=== PATIENT | female | born 1940 | race Caucasian/White ===

== ENCOUNTER 2018-02-26 10:19 | Emergency (ER) | payer MEDICARE, SELFPAY ==
[2018-02-26] VITALS (7 sets, daily range): BP systolic 142–173; BP diastolic 75–95; PULSE 84–97; RESP 18–27; TEMP 36.8; O2SAT 95–98
--- NOTE | 2018-02-26 10:34 | DI.RAD.S_ITS ---
PROCEDURE: XR CHEST 1V INDICATIONS: chest pain and short of breath TECHNIQUE: One view of the chest was acquired. COMPARISON: [facility], , CHEST 2 VIEW, 01/18/2015, 6:39. FINDINGS: Surgical changes and devices: None. Lungs and pleura: Increased interstitial markings are identified within the bilateral lung bases (right and left), which are more prominent on the current study, compared to the previous study. No focal consolidation is evident. No pleural effusion or pneumothorax is appreciated. Mediastinum: Mediastinal contours appear normal. Heart size is normal. Bones and chest wall: No suspicious bony lesions. Overlying soft tissues appear unremarkable. IMPRESSION: Prominent bibasilar lung markings may be related to chronic interstitial changes. However, superimposed pulmonary edema is difficult to exclude. Dictated by: Victor Hugo Castillo M.D. on 02/26/2018 at 11:13 Approved by: Victor Hugo Castillo M.D. on 02/26/2018 at 11:16
--- NOTE | 2018-02-26 10:42 | ED.ARRPALP ---
HPI - Arrhythmia/Palpitations General Chief Complaint: Arrhythmia/Palpitations Stated Complaint: NEW ONSET AFIB Time Seen by Provider: 02/26/18 10:33 Source: patient and RN notes reviewed Mode of arrival: ambulatory Limitations: no limitations History of Present Illness HPI narrative: Patient is a 77-year-old female who presents from her primary care provider's office new onset AFib. Patient says she was there for her routine checkup and she was found to have free controlled atrial fibrillation. She sent to the ED for further evaluation due to shortness of breath. Patient says she has chronic ongoing shortness of breath she has had multiple pulmonary function testing on a inhalers bronchodilators to not work for her. She does not feel that her shortness of breath is any worse than normal. She denies any chest pain or heart palpitations. She completely asymptomatic. She does get shortness of breath with exertion. Related Data Home Medications Medication Instructions Recorded Confirmed calcium carbonate 500 mg calcium 500 mg PO DAILY tab 02/26/18 02/26/18 (1,250 mg) tablet hydrochlorothiazide 25 mg PO DAILY 02/26/18 02/26/18 Previous Rx's Medication Instructions Recorded ascorbic acid (vitamin C) 500 mg 500 mg PO DAILY #90 tab 02/26/18 tablet aspirin 81 mg tablet,delayed 81 mg PO DAILY #90 tab 02/26/18 release multivitamin tablet 1 tab PO DAILY #90 tab 02/26/18 omega-3 fatty acids 1,000 mg 1,000 mg PO DAILY #90 cap 02/26/18 capsule verapamil 80 mg tablet 80 mg PO BID #180 tab 02/26/18 vitamin B complex tablet 1 tab PO DAILY #90 tab 02/26/18 vitamin E 200 unit capsule 200 unit PO DAILY #90 cap 02/26/18 warfarin [Coumadin] 5 mg PO DAILY #30 tab 02/26/18 Allergies Allergy/AdvReac Type Severity Reaction Status Date / Time lanolin [LANOLIN] Allergy Intermediate RASH Verified 02/26/18 09:37 Sulfa (Sulfonamide AdvReac Mild N/V Verified 02/26/18 09:37 Antibiotics) [SULFA (SULFONAMIDE ANTIBIOTICS)] Review of Systems Review of Systems All systems reviewed & are unremarkable except as noted in HPI and below Constitutional Denies chills, Denies fever(s), Denies lethargy and Denies weakness Cardiovascular Denies chest pain, Denies irregular heart rhythm, Denies lightheadedness, Denies palpitations, Reports dyspnea on exertion and Denies orthopnea Respiratory Reports as per HPI and Reports dyspnea on exertion Gastrointestinal Gastrointestinal: Denies abdominal pain, Denies change in bowel habits, Denies diarrhea, Denies nausea and Denies vomiting Musculoskeletal Denies back pain, Denies muscle weakness, Denies numbness and Denies tingling Integumentary/Breasts Denies pruritus, Denies erythema, Denies rash and Denies wounds Neurologic Denies numbness, Denies tingling and Denies weakness Endocrine Denies palpitations PFSH Medical History Mild mitral regurgitation (Chronic) Sleep apnea (Chronic) 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 (Resolved) Social History Smoking Status: Never smoker Exam Initial Vital Signs Initial Vital Signs: Vital Signs Temperature 98.3 F 02/26/18 10:40 Pulse Rate 89 02/26/18 10:40 Respiratory Rate 20 02/26/18 10:40 Blood Pressure 151/77 H 02/26/18 10:40 Pulse Oximetry 97 02/26/18 10:40 Const General: cooperative and comfortable Nutritional Appearance: overweight Orientation: alert, awake and oriented x3 Neck Neck: full ROM, no meningeal signs and No JVD Chest Chest: normal inspection of the chest Resp Effort & Inspection: normal respiratory effort, not labored and no respiratory distress Auscultation: wheezes inspiratory wheezes and upper bilaterally Cardio Rate: regular rate Rhythm: abnormal rhythm irregularly irregular Heart Sounds: no click, no gallops, no murmurs and no rubs Pulses: normal peripheral pulses Skin General: no rashes or lesions noted, No jaundice and No petechiae Neuro General: alert, awake and oriented x3 Course Orders Ordered: ED Orders 02/26/18 10:30 B Type Natriuretic Peptide Stat Complete Blood Count AUTO DIFF Stat Comprehensive Metabolic Panel Stat Lipase Stat Partial Thromboplastin Time Stat Prothrombin Time INR Stat Troponin & CK Cardiac Panel Stat 02/26/18 10:34 XR chest 1V Stat 02/26/18 11:48 CT angio chest PE protocol Stat Discontinued Medications Aspirin (Aspirin Chew) 324 mg PO NOW ONE Stop: 02/26/18 10:34 Last Admin: 02/26/18 10:50 Dose: 324 mg Diltiazem HCl (Cardizem) 10 mg IV NOW ONE Stop: 02/26/18 10:43 Last Admin: 02/26/18 10:50 Dose: 10 mg Warfarin Sodium (Coumadin) 5 mg PO NOW ONE Stop: 02/26/18 13:26 Last Admin: 02/26/18 14:02 Dose: 5 mg Vital Signs - 8 hr 02/26/18 10:50 02/26/18 11:17 02/26/18 11:30 Pulse Rate 97 H 87 87 Respiratory Rate 19 23 Blood Pressure 151/77 H Blood Pressure [Left Wrist] 151/77 H 150/75 H Pulse Oximetry 95 97 02/26/18 12:02 02/26/18 12:57 02/26/18 14:44 Pulse Rate 89 84 93 H Respiratory Rate 20 27 H 18 Blood Pressure 142/78 H Blood Pressure [Left Wrist] 150/85 H 173/95 H Pulse Oximetry 98 97 97 MDM - Arrhythmia/Palpitations Lab Data Result diagrams: 02/26/18 10:30 02/26/18 10:30 Lab Results 02/26/18 02/26/18 02/26/18 Range/Units 10:30 10:30 10:30 WBC 10.5 (4.5-11.0) X10^3/uL RBC 5.29 H (4.0-5.2) X10^6/uL Hgb 15.6 (12.0-16.0) g/dL Hct 46.3 H (36-46) % MCV 87.6 (80-100) fL MCH 29.5 (26-34) PG MCHC 33.7 (30-36) % RDW 14.3 (11.6-14.8) % Plt Count 216 (150-400) X10^3/uL Neut % (Auto) 69.6 (50-75) % Lymph % (Auto) 18.9 L (25-40) % [place] % (Auto) 9.9 (3-14) % Eos % (Auto) 1.2 L (2-4) % Baso % (Auto) 0.4 (0-2) % Neut # (Auto) 7300 H (6682-0415) /uL PT (10.1-12.7) SECONDS INR (0.9-1.3) APTT (26.4-36.2) SECONDS Sodium 138 (137-145) mmol/L Potassium 4.1 (3.4-5.1) mmol/L Chloride 99 (98-107) mmol/L Carbon Dioxide 29 (22-32) mmol/L BUN 24 H (7-17) mg/dL Creatinine 0.90 (0.52-1.04) mg/dL Estimated GFR > 60.0 (>60) mL/min BUN/Creatinine Ratio 26.7 H (6-22) Glucose 100 (80-110) mg/dL Calcium 9.5 (8.4-10.2) mg/dL Total Bilirubin 1.0 (0.2-1.3) mg/dL AST 34 (14-36) IU/L ALT 36 (9-52) IU/L Alkaline Phosphatase 79 (38-126) U/L Total Creatine Kinase 37 (30-135) U/L Troponin I < 0.012 (0.01-0.034) ng/mL B-Natriuretic Peptide 130.0 H (<100) Total Protein 7.7 (6.3-8.2) g/dL Albumin 4.5 (3.5-5.0) g/dL Globulin 3.2 (1.7-4.1) g/dL Albumin/Globulin Ratio 1.4 (1.0-2.8) Lipase 185 (23-300) U/L //18 Range/Units 10:30 WBC (4.5-11.0) X10^3/uL RBC (4.0-5.2) X10^6/uL Hgb (12.0-16.0) g/dL Hct (36-46) % MCV (80-100) fL MCH (26-34) PG MCHC (30-36) % RDW (11.6-14.8) % Plt Count (150-400) X10^3/uL Neut % (Auto) (50-75) % Lymph % (Auto) (25-40) % [place] % (Auto) (3-14) % Eos % (Auto) (2-4) % Baso % (Auto) (0-2) % Neut # (Auto) (6518-6415) /uL PT 12.0 (10.1-12.7) SECONDS INR 1.1 (0.9-1.3) APTT 30 (26.4-36.2) SECONDS Sodium (137-145) mmol/L Potassium (3.4-5.1) mmol/L Chloride (98-107) mmol/L Carbon Dioxide (22-32) mmol/L BUN (7-17) mg/dL Creatinine (0.52-1.04) mg/dL Estimated GFR (>60) mL/min BUN/Creatinine Ratio (6-22) Glucose (80-110) mg/dL Calcium (8.4-10.2) mg/dL Total Bilirubin (0.2-1.3) mg/dL AST (14-36) IU/L ALT (9-52) IU/L Alkaline Phosphatase (38-126) U/L Total Creatine Kinase (30-135) U/L Troponin I (0.01-0.034) ng/mL B-Natriuretic Peptide (<100) Total Protein (6.3-8.2) g/dL Albumin (3.5-5.0) g/dL Globulin (1.7-4.1) g/dL Albumin/Globulin Ratio (1.0-2.8) Lipase (23-300) U/L Imaging Data Chest x-ray: Radiologist's impression: PROCEDURE: XR CHEST 1V INDICATIONS: chest pain and short of breath TECHNIQUE: One view of the chest was acquired. COMPARISON: [facility], CHEST 2 VIEW, 01/18/2015, 6:39. FINDINGS: Surgical changes and devices: None. Lungs and pleura: Increased interstitial markings are identified within the bilateral lung bases (right and left), which are more prominent on the current study, compared to the previous study. No focal consolidation is evident. No pleural effusion or pneumothorax is appreciated. Mediastinum: Mediastinal contours appear normal. Heart size is normal. Bones and chest wall: No suspicious bony lesions. Overlying soft tissues appear unremarkable. IMPRESSION: Prominent bibasilar lung markings may be related to chronic interstitial changes. However, superimposed pulmonary edema is difficult to exclude. Dictated by: Victor Hugo Castillo M.D. on 02/26/2018 at 11:13 CT scan - chest: Radiologist's impression: PROCEDURE: CT ANGIO CHEST PE PROTOCOL INDICATIONS: Short of breath TECHNIQUE: After the administration of intravenous contrast, 2 mm thick sections acquired from the pulmonary apices to the posterior costophrenic angles. 3-dimensional maximum intensity projection (MIP) coronal and sagittal reformats were then acquired through the thorax. For radiation dose reduction, the following was used: automated exposure control, adjustment of mA and/or kV according to patient size. COMPARISON: [facility], CT, THORAX WITHOUT CONTRAST, 02/09/2015, 10:05. FINDINGS: Image quality: Excellent. Pulmonary arteries: No intraluminal filling defects to suggest central pulmonary embolism. The main pulmonary artery is enlarged measuring 33 mm in transverse dimension. It is minimally increased in size compared to 02/09/15 at which time it measured 31 mm. Lungs and pleura: Lungs are clear. No pleural effusions or pneumothorax. Central and peripheral airways are patent. Mediastinum: Heart size is normal, without pericardial effusion. No mediastinal or hilar adenopathy. Thoracic aorta is normal in caliber and enhancement. Esophagus is normal in caliber, without hiatal hernia. Bones and chest wall: No suspicious bony lesions. Ribs and thoracic spine appear intact throughout. Thyroid gland is unremarkable. No axillary or supraclavicular adenopathy. Abdomen: Visualized upper abdominal solid organs appear normal in the early arterial phase of enhancement. IMPRESSION: 1. No pulmonary embolism. Mild enlargement of the main pulmonary artery which can be seen with pulmonary artery hypertension. 2. Lungs are clear. Dictated by: Shweta Kan M.D. on 02/26/2018 at 13:01 ECG Data Attestation: I personally reviewed and interpreted this ECG as follows: Prior ECG tracings: available for review Interpretation: Atrial fibrillation with PVCs rate [address] changes right bundle-branch block, this is compared to the clinic EKG, which was done of the hour earlier MDM Narrative Medical decision making narrative: I have discussed case with primary care provider Dr. marte. The patient has normal oxygen levels she does not feel short of breath or have chest pain. Her heart rate is controlled. CT is negative for PE. At this point Dr. marte would like Coumadin started and she will see her in the clinic this week. Discharge Plan Departure Patient Disposition: Home, Self-Care Clinical Impression: Atrial fibrillation Discharge Date/Time: 02/26/18 14:45 Interventions: ED Discharge Assessment Last Done: 02/26/18 14:44 Instructions: Atrial Fibrillation Activity Restrictions/Additional Instructions: *You have been diagnosed with atrial fibrillation *What to do: He will need you're warfarin/Coumadin level checked frequently -expect to have increased bleeding times, hold pressure for 30-60 minutes -if you should fall and hit her head come directly to the emergency department *Continue to take medications as directed At your request you're medications have been faxed to [facility] in [place] *Follow up with your primary care provider on 02/28/2018 *Return to ER if you should have chest pain, shortness of breath, dizziness or any new, worsening or concerning symptoms Prescriptions: New warfarin [Coumadin] 5 mg tablet 5 mg PO DAILY Qty: 30 RF: 0 No Action multivitamin [Multiple Vitamins] tablet 1 tab PO DAILY Qty: 90 RF: 0 aspirin 81 mg tablet,delayed release (DR/EC) 81 mg PO DAILY Qty: 90 RF: 0 vitamin B complex [B Complex-Vitamin B12] tablet 1 tab PO DAILY Qty: 90 RF: 0 omega-3 fatty acids [Fish Oil Concentrate] 1,000 mg capsule 1,000 mg PO DAILY Qty: 90 RF: 0 ascorbic acid (vitamin C) 500 mg tablet 500 mg PO DAILY Qty: 90 RF: 0 calcium carbonate 500 mg calcium (1,250 mg) tablet 500 mg PO DAILY RF: 0 vitamin E 200 unit capsule 200 unit PO DAILY Qty: 90 RF: 0 verapamil 80 mg tablet 80 mg PO BID Qty: 180 RF: 3 hydrochlorothiazide 25 mg tablet 25 mg PO DAILY RF: 0 Referrals: Ledy Marte MD [Primary Care Provider] -
[2018-02-26 10:46] LABS: Add Manual Diff / Slide Review NO; Basophils Percent Auto 0.4 % (0-2); Eosinophils Percent Auto 1.2 % (2-4); Hematocrit 46.3 % (36-46); Hemoglobin 15.6 g/dL (12.0-16.0); Lymphocytes Percent Auto 18.9 % (25-40); Mean Corpuscular HGB Conc 33.7 % (30-36); Mean Corpuscular Hemoglobin 29.5 PG (26-34); Mean Corpuscular Volume 87.6 fL (80-100); Monocytes Percent Auto 9.9 % (3-14); Neutrophils Absolute Auto 7300 /uL (3000-5900); Neutrophils Percent Auto 69.6 % (50-75); Platelet Count 216 X10^3/uL (150-400); Red Blood Cell Count 5.29 X10^6/uL (4.0-5.2); Red Cell Distribution Width 14.3 % (11.6-14.8); White Blood Cell Count 10.5 X10^3/uL (4.5-11.0)
[2018-02-26] MEDS: dilTIAZem 25 MG/5 ML SDV 10 MG IV (10:50)
[2018-02-26] MEDS: ASPIRIN 81 MG TAB 324 MG PO (10:50)
[2018-02-26 10:56] LABS: Alanine Aminotransferase 36 IU/L (9-52); Albumin 4.5 g/dL (3.5-5.0); Albumin Globulin Ratio 1.4 (1.0-2.8); Alkaline Phosphatase 79 U/L (38-126); Aspartate Aminotransferase 34 IU/L (14-36); BUN Creatinine Ratio 26.7 (6-22); Blood Urea Nitrogen 24 mg/dL (7-17); Calcium 9.5 mg/dL (8.4-10.2); Carbon Dioxide 29 mmol/L (22-32); Chloride 99 mmol/L (98-107); Creatine Kinase 37 U/L (30-135); Estimated Glomerular Filt Rate > 60.0 mL/min (>60); Globulin 3.2 g/dL (1.7-4.1); Glucose 100 mg/dL (80-110); HEMOLYSIS 45 (0-50); Lipase 185 U/L (23-300); Potassium 4.1 mmol/L (3.4-5.1); Sodium 138 mmol/L (137-145); Total Protein 7.7 g/dL (6.3-8.2)
[2018-02-26 11:11] LABS: Troponin I < 0.012 ng/mL (0.01-0.034)
--- NOTE | 2018-02-26 11:48 | DI.CT.S_ITS ---
PROCEDURE: CT ANGIO CHEST PE PROTOCOL INDICATIONS: Short of breath TECHNIQUE: After the administration of intravenous contrast, 2 mm thick sections acquired from the pulmonary apices to the posterior costophrenic angles. 3-dimensional maximum intensity projection (MIP) coronal and sagittal reformats were then acquired through the thorax. For radiation dose reduction, the following was used: automated exposure control, adjustment of mA and/or kV according to patient size. COMPARISON: [facility], CT, THORAX WITHOUT CONTRAST, 02/09/2015, 10:05. FINDINGS: Image quality: Excellent. Pulmonary arteries: No intraluminal filling defects to suggest central pulmonary embolism. The main pulmonary artery is enlarged measuring 33 mm in transverse dimension. It is minimally increased in size compared to 02/09/15 at which time it measured 31 mm. Lungs and pleura: Lungs are clear. No pleural effusions or pneumothorax. Central and peripheral airways are patent. Mediastinum: Heart size is normal, without pericardial effusion. No mediastinal or hilar adenopathy. Thoracic aorta is normal in caliber and enhancement. Esophagus is normal in caliber, without hiatal hernia. Bones and chest wall: No suspicious bony lesions. Ribs and thoracic spine appear intact throughout. Thyroid gland is unremarkable. No axillary or supraclavicular adenopathy. Abdomen: Visualized upper abdominal solid organs appear normal in the early arterial phase of enhancement. IMPRESSION: 1. No pulmonary embolism. Mild enlargement of the main pulmonary artery which can be seen with pulmonary artery hypertension. 2. Lungs are clear. Dictated by: Shweta Kan M.D. on 02/26/2018 at 13:01 Approved by: Shweta Kan M.D. on 02/26/2018 at 13:05
[2018-02-26 13:43] LABS: INR 1.1 (0.9-1.3)
[2018-02-26 13:46] LABS: PTT Partial Thromboplastin Tim 30 SECONDS (26.4-36.2)
[2018-02-26] MEDS: WARFARIN 5 MG TABLET PO (14:02)
== END 2018-02-26 14:45 | disposition home or self-care (01) ==
PROVIDERS: Emergency Provider Emergency Medicine; Family Provider Family Medicine; PCP Family Medicine
DX: I48.91 Unspecified atrial fibrillation (principal); Z79.01 Long term (current) use of anticoagulants
CPT/HCPCS: 36415; 36591; 71045; 71275; 80053; 82550; 82553; 83690; 83880; 84484; 85025; 85610; 85730; 93005; 96374; 99283; 99285; Q9967

== ENCOUNTER 2018-03-01 13:02 | Emergency (ER) | payer MEDICARE, SELFPAY ==
[2018-03-01 13:19] VITALS: BP 172/90; PULSE 100; RESP 18; TEMP 36.8; O2SAT 95; BMI 45.8
--- NOTE | 2018-03-01 14:13 | DI.RAD.S_ITS ---
PROCEDURE: XR HAND LT MIN 3V INDICATIONS: injury TECHNIQUE: 3 views of the hand(s) acquired. COMPARISON: [facility], , HAND 3V LEFT, 08/09/2012, 9:13. FINDINGS: Bones: No fractures or dislocations. Carpal bones are normally aligned. No suspicious bony lesions. The there is diffuse mild to moderate PIP and DIP joint space narrowing as well as first MCP joint. No erosions are identified. Soft tissues: No suspicious soft tissue calcifications. IMPRESSION: Degenerative changes as above. No visualized acute fracture or dislocation. However, if clinical concern and/or pain persist, short interval imaging followup in 7-10 days is recommended, as occult injury cannot be definitively excluded. Dictated by: Shweta Kan M.D. on 03/01/2018 at 14:31 Approved by: Shweta Kan M.D. on 03/01/2018 at 14:32
--- NOTE | 2018-03-01 14:48 | ED.ANIMALBIT ---
HPI - Animal Bite <Sharmin Escobedo PA-C - Last Filed: 03/01/18 22:15> General Chief Complaint: Animal Bite Stated Complaint: CAT BITE ON LEFT HAND,SWELLING Time Seen by Provider: 03/01/18 14:48 Source: patient Mode of arrival: ambulatory Limitations: no limitations History of Present Illness HPI narrative: This 77-year-old female was bitten and scratched last night by the family cat when it got frightened. It is vaccines are up-to-date. She states that she washed it well with soap and water and rinsed it out with peroxide, however noticed increased pain and swelling especially on the dorsum of the hand and around her 2nd finger where the bites are, so came in for evaluation. She checked her temperature and states she has not had fever at home. She denies any other complaints or other injury. She thinks her last tetanus vaccine was about 10 years ago Related Data Home Medications Medication Instructions Recorded Confirmed calcium carbonate 500 mg calcium 500 mg PO DAILY tab 02/26/18 03/01/18 (1,250 mg) tablet hydrochlorothiazide 25 mg PO DAILY 02/26/18 03/01/18 Previous Rx's Medication Instructions Recorded ascorbic acid (vitamin C) 500 mg 500 mg PO DAILY #90 tab 02/26/18 tablet multivitamin tablet 1 tab PO DAILY #90 tab 02/26/18 omega-3 fatty acids 1,000 mg 1,000 mg PO DAILY #90 cap 02/26/18 capsule verapamil 80 mg tablet 80 mg PO BID #180 tab 02/26/18 vitamin B complex tablet 1 tab PO DAILY #90 tab 02/26/18 vitamin E 200 unit capsule 200 unit PO DAILY #90 cap 02/26/18 warfarin [Coumadin] 5 mg PO DAILY #30 tab 02/26/18 amoxicillin-pot clavulanate 1 tab PO BID #20 tab 03/01/18 [Augmentin] Allergies Allergy/AdvReac Type Severity Reaction Status Date / Time lanolin [LANOLIN] Allergy Intermediate RASH Verified 03/01/18 13:21 Sulfa (Sulfonamide AdvReac Mild N/V Verified 03/01/18 13:21 Antibiotics) [SULFA (SULFONAMIDE ANTIBIOTICS)] Review of Systems <Sharmin Escobedo PA-C - Last Filed: 03/01/18 22:15> Review of Systems All systems reviewed & are unremarkable except as noted in HPI and below Exam <Sharmin Escobedo PA-C - Last Filed: 03/01/18 22:15> Initial Vital Signs Initial Vital Signs: Vital Signs Temperature 98.2 F 03/01/18 13:19 Pulse Rate 100 H 03/01/18 13:19 Respiratory Rate 18 03/01/18 13:19 Blood Pressure 172/90 H 03/01/18 13:19 Pulse Oximetry 95 03/01/18 13:19 GENERAL APPEARANCE: Patient sitting comfortably, in no distress. LUNGS: Clear to auscultation bilaterally. HEART: Rate and rhythm regular without murmur, normal S1 and S2, no S3 or S4. DERMATOLOGIC: Left hand dorsum there is an effusion and warm erythema over the distal 2nd and 3rd metatarsal as well as the 2nd proximal pointer finger dorsum. Her visible scabbed puncture wounds centrally. There are also visible scabbed puncture wounds on the the medial pointer finger and palmar surface, with erythema over the palmar surface of the pointer finger and effusion around the puncture wounds. The erythema is not circumferential. There are also numerous scabbed scratch sepulveda on the forearm and wrist. MUSCULOSKELETAL: Left hand and wrist full range of motion aside from left finger which is limited secondary to effusion, however strength is intact in all tendons against resistance NEUROVASCULAR: Left hand and fingers sensation is grossly intact, warm and pink <Ari Farrell MD - Last Filed: 03/02/18 08:57> Initial Vital Signs Initial Vital Signs: Vital Signs Temperature 98.2 F 03/01/18 13:19 Pulse Rate 100 H 03/01/18 13:19 Respiratory Rate 18 03/01/18 13:19 Blood Pressure 172/90 H 03/01/18 13:19 Pulse Oximetry 95 03/01/18 13:19 Course <Sharmin Escobedo PA-C - Last Filed: 03/01/18 22:15> Orders Ordered: Discontinued Medications Acetaminophen (Tylenol) 650 mg PO NOW ONE Stop: 03/01/18 15:00 Last Admin: 03/01/18 15:03 Dose: 650 mg Diphtheria/Tetanus/Acell Pertussis (Adacel) 0.5 ml IM .ONCE ONE Stop: 03/01/18 15:00 Last Admin: 03/01/18 15:03 Dose: 0.5 ml Vital Signs - 8 hr 03/01/18 15:14 Pulse Rate 77 Respiratory Rate 15 Blood Pressure 137/81 H Pulse Oximetry 98 <Ari Farrell MD - Last Filed: 03/02/18 08:57> Orders Ordered: Discontinued Medications Acetaminophen (Tylenol) 650 mg PO NOW ONE Stop: 03/01/18 15:00 Last Admin: 03/01/18 15:03 Dose: 650 mg Diphtheria/Tetanus/Acell Pertussis (Adacel) 0.5 ml IM .ONCE ONE Stop: 03/01/18 15:00 Last Admin: 03/01/18 15:03 Dose: 0.5 ml Vital Signs - 8 hr 03/01/18 15:14 Pulse Rate 77 Respiratory Rate 15 Blood Pressure 137/81 H Pulse Oximetry 98 MDM - Animal Bite <Sharmin Escobedo PA-C - Last Filed: 03/01/18 22:15> Imaging Data hand: Radiologist's impression: [address] [address] XRay Report Signed Patient: Molly Brown MR#: [id number] : 1940 Acct:[id number] Age/Sex: 77 / F Date of Service: 03/01/18 Loc: ED Accession Number: [id number] Procedure: XR hand LT min 3V Ordering Provider: Ari Farrell M.D. PROCEDURE: XR HAND LT MIN 3V INDICATIONS: injury TECHNIQUE: 3 views of the hand(s) acquired. COMPARISON: [facility], , HAND 3V LEFT, 08/09/2012, 9:13. FINDINGS: Bones: No fractures or dislocations. Carpal bones are normally aligned. No suspicious bony lesions. The there is diffuse mild to moderate PIP and DIP joint space narrowing as well as first MCP joint. No erosions are identified. Soft tissues: No suspicious soft tissue calcifications. IMPRESSION: Degenerative changes as above. No visualized acute fracture or dislocation. However, if clinical concern and/or pain persist, short interval imaging followup in 7-10 days is recommended, as occult injury cannot be definitively excluded. Dictated by: Shweta Kan M.D. on 03/01/2018 at 14:31 Approved by: Shweta Kan M.D. on 03/01/2018 at 14:32 Discharge Plan Departure Patient Disposition: Home, Self-Care Clinical Impression: Cat bite involving extremity Discharge Date/Time: 03/01/18 15:14 Interventions: ED Discharge Assessment Last Done: 03/01/18 15:14 Instructions: DI for Cat Bite Activity Restrictions/Additional Instructions: Cat bite frequently get infected as yours appears to be. 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 Use Tylenol as needed for pain. There is no acute problem on your x-ray today. As we talked about, if you have acutely worsening symptoms such as more redness, swelling, pain, or new fever, you should return to the emergency department over the weekend. Otherwise, please planned to follow up with your PCP on Sunday to get this rechecked and you should also have your INR checked to make sure your Coumadin is not affected by the antibiotic. Prescriptions: New amoxicillin-pot clavulanate [Augmentin] 875-125 mg tablet 1 tab PO BID Qty: 20 RF: 0 No Action multivitamin [Multiple Vitamins] tablet 1 tab PO DAILY Qty: 90 RF: 0 vitamin B complex [B Complex-Vitamin B12] tablet 1 tab PO DAILY Qty: 90 RF: 0 omega-3 fatty acids [Fish Oil Concentrate] 1,000 mg capsule 1,000 mg PO DAILY Qty: 90 RF: 0 ascorbic acid (vitamin C) 500 mg tablet 500 mg PO DAILY Qty: 90 RF: 0 calcium carbonate 500 mg calcium (1,250 mg) tablet 500 mg PO DAILY RF: 0 vitamin E 200 unit capsule 200 unit PO DAILY Qty: 90 RF: 0 verapamil 80 mg tablet 80 mg PO BID Qty: 180 RF: 3 hydrochlorothiazide 25 mg tablet 25 mg PO DAILY RF: 0 warfarin [Coumadin] 5 mg tablet 5 mg PO DAILY Qty: 30 RF: 0 Referrals: Ledy Marte MD [Primary Care Provider] - <Ari Farrell MD - Last Filed: 03/02/18 08:57> Sign Out Provider Sign Out Attestation: The PA/MECHANIC RECOVERY functioned independently for the care of this pt, I was available, but not asked to participate in care. I am unable to determine appropriateness of management without personally examining the pt.
[2018-03-01] MEDS: TET,DIPH,PERTUSS(ACELL),VAC/PF 0.5 ML SYRINGE IM (15:03)
[2018-03-01] MEDS: ACETAMINOPHEN 325 MG TABLET 650 MG PO (15:03)
[2018-03-01 15:14] VITALS: BP 137/81; PULSE 77; RESP 15; O2SAT 98
== END 2018-03-01 15:14 | disposition home or self-care (01) ==
PROVIDERS: Emergency Provider Internal Medicine; Family Provider Family Medicine; PCP Family Medicine
DX: S61.452A Open bite of left hand, initial encounter (principal); W55.01XA Bitten by cat, initial encounter
CPT/HCPCS: 73130; 90471; 99282; 99283; 90715

== ENCOUNTER → 2018-03-12 09:18 | Outpatient (CLI) | payer MEDICARE, SELFPAY ==
--- NOTE | 2018-03-12 09:20 | DI.US.S_ITS ---
PROCEDURE: US CAROTID DOPPLER BI INDICATIONS: Increaseing SOB TECHNIQUE: Color and pulse Doppler interrogation was performed of both carotid systems, with image documentation and velocity measurements. COMPARISON: None. FINDINGS: Stenosis calculations are based on SRU (Society of Radiologists in Ultrasound) criteria. Right side: Brachial blood pressure: Not obtained. Common carotid artery peak systolic velocity: 105 cm/sec. Internal carotid artery peak systolic velocity: 85 cm/sec. Internal carotid artery end diastolic velocity: 24 cm/sec. External carotid artery peak systolic velocity: 94 cm/sec. ICA/CCA peak systolic ratio: 20. Chaudhry scale imaging description: Minimal plaque. Percent internal carotid artery stenosis: Less than 50%. Vertebral artery: Flow direction is antegrade. Left side: Brachial blood pressure: 168/66 mm Hg. Common carotid artery peak systolic velocity: 85 cm/sec. Internal carotid artery peak systolic velocity: 99 cm/sec. Internal carotid artery end diastolic velocity: 17 cm/sec. External carotid artery peak systolic velocity: 133 cm/sec. ICA/CCA peak systolic ratio: 1.2. Chaudhry scale imaging description: Moderate plaque. Percent internal carotid artery stenosis: Less than 50%. Vertebral artery: Flow direction is antegrade. IMPRESSION: Less than 50% bilateral internal carotid artery stenosis. Dictated by: Romero Lundberg [facility] Interpreted: Mine Martino MD on 03/12/2018 at 11:38 Approved by: Mine Martino MD, PhD on 03/12/2018 at 12:26
--- NOTE | 2018-03-12 09:20 | DI.ECHO.S_ITS ---
[place] [facility]---------+ [facility] +---------+ : : [address] : : : : [id number] : : : : Phone: [phone]+ Echocardiogram Report + + :Name: MARILIN CAVAZOS Study Date: 03/12/2018 Height: 62 in : :[facility] Weight: 230 lb : : Gender: Female BSA: 2.0 m2 : :: 1940 Age: 77 yrs BP: 168/66 mmHg: :Reason For Study: SOB : : Performed By: Kacie Galarza : :Referring: Dr. Alexx Anderson : + + Interpretation Summary The left ventricle is normal in size, wall thickness, and systolic function without any focal wall motion abnormalities. The ejection fraction is estimated to be 60-65%. LVEF has not changed. LV diastolic function cannot be asessed due to a-fib. The right ventricle is borderline dilated. he right ventricular systolic function is normal. The right ventricular systolic pressure is estimated at 43 mmHg assuming a right atrial pressure of 8 mm Hg. Compared to the prior echo exam, there has been a decrease in the severity of pulmonary hypertension. The left atrium grossly appears normal in size. The right atrium is mild to moderately dilated. There is mild to moderate mitral regurgitation. Compared to the prior echo study, there has been an increase in the severity of mitral regurgitation. There is moderate tricuspid regurgitation. Compared to the prior echo exam, there has been an increase in TR severity. There is no other significant valvular heart disease. The aortic root is normal size. Procedure: A two-dimensional transthoracic echocardiogram with color flow and Doppler was performed. The study quality was technically difficult. A contrast injection of Definity was performed to improve assessment of LV function. A total of 1.5 cc of contrast was given. The patient was in atrial fibrillation with heart rates between 82-96 bpm during the exam. Left Ventricle: The left ventricle is normal in size, wall thickness, and systolic function without any focal wall motion abnormalities. The ejection fraction is estimated to be 60-65%. Diastolic function could not be accurately assessed due to atrial fibrillation. Right Ventricle: The right ventricle is borderline dilated. The right ventricular systolic function is normal. Atria: The left atrium grossly appears normal in size. The right atrium is mild to moderately dilated. The interatrial septum is intact with no evidence for an atrial septal defect. Mitral Valve: The mitral valve is grossly normal. There is mild to moderate mitral regurgitation. Compared to the prior echo study, there has been an increase in the severity of mitral regurgitation. Aortic Valve: The aortic valve opens well. No aortic regurgitation is present. Tricuspid Valve: The tricuspid valve leaflets are thin and pliable. There is moderate tricuspid regurgitation. Compared to the prior echo exam, there has been an increase in TR severity. The right ventricular systolic pressure is estimated at 43 mmHg assuming a right atrial pressure of 8 mm Hg. Compared to the prior echo exam, there has been a decrease in the severity of pulmonary hypertension. Pulmonic Valve: The pulmonic valve is not well visualized. There is no pulmonic valvular regurgitation. There is no other significant valvular heart disease. Great Vessels: The aortic root is normal size. The ascending aorta is at the upper limits of normal in size. The IVC is dilated (diameter is greater than 2.1 cm) yet it collapses greater than 50% with a sniff. This suggests a right atrial pressure of 8 mm Hg. Pericardium/ Pleura There is no pericardial effusion. There is no pleural effusion. MMode/2D Measurements & Calculations LVIDd: 4.3 cm Ao root diam: 3.3 cm LVIDs: 3.0 cm Aortic Jxn: 2.4 cm FS: 30.0 % asc Aorta Diam: 3.5 cm EPSS: 1.3 cm Ao Arch Diam (Prox Trans): 2.9 cm IVSd: 1.0 cm LVPWd: 1.0 cm LV mir. diameter/BSA (cm/m^2): 2.1 LV sys. diameter/BSA (cm/m^2): 1.5 LA dimension: 3.8 cm RA long axis: 5.2 cm LA A2 area: 21.2 cm2 RA area: 22.5 cm2 LA A4 area: 19.0 cm2 RA vol: 82.8 ml LA length (vol): 5.0 cm RA : 40.8 ml/m2 LA vol: 68.1 ml IVC diam: 2.3 cm LA vol index: 33.6 ml/m2 Doppler Measurements & Calculations Ao V2 max: 141.3 cm/sec Med Peak E' Edgar: 8.0 cm/sec Ao V2 mean: 98.1 cm/sec Lat Peak E' Edgar: 7.1 cm/sec Ao max P.0 mmHg MV P1/2t: 73.1 msec Ao mean P.4 mmHg MR ERO: 0.09 cm2 Ao V2 VTI: 31.0 cm TR max edgar: 294.3 cm/sec MV V2 mean: 55.4 cm/sec TR max P.6 mmHg MV mean P.7 mmHg PA V2 max: 76.1 cm/sec MV V2 VTI: 22.1 cm PA V2 mean: 49.0 cm/sec PA mean P.1 mmHg PA Accel Time: 0.12 sec MV P1/2t max edgar: 117.5 cm/sec MR flow rate: 44.7 cm3/sec MVA(P1/2t): 3.0 cm2 MR PISA radius: 0.43 cm Reading Physician:NADEEM
== END ==
PROVIDERS: PCP Internal Medicine; Visit Provider Family Medicine
DX: R06.02 Shortness of breath (principal); I48.91 Unspecified atrial fibrillation; I08.1 Rheumatic disorders of both mitral and tricuspid valves; I65.23 Occlusion and stenosis of bilateral carotid arteries
CPT/HCPCS: 93306; 93880; Q9957

== ENCOUNTER → 2018-04-17 08:04 | Outpatient (CLI) | payer MEDICARE, SELFPAY ==
--- NOTE | 2018-04-17 09:25 | P.PCN_ITS ---
Cardiac Stress Test Report Referral & Results Date Patient Seen: 04/17/18 Time Patient Seen: 09:23 Requesting provider: Alexx Anderson Indication: Atrial fibrillation Rest ECG: Atrial fibrillation with controlled ventricular response Procedure Note: Today following both written and verbal informed consent the patient was exercised according to a standard Arnol protocol patient went for a total of 3 min 10 sec achieving a maximum heart rate of 180 to maximum systolic blood pressure of 200. This is approximately 4.6 METS. Exercise was terminated at this point because of inability of patient to continue and 4+ dyspnea. Patient was also given Cardiolite through a previously started Hep-Lock IV by the certified pharmacy technician approximately 1 minute prior to the cessation of exercise. There is loss of motion artifact during the treadmill portion of the test but no obvious ST segment changes were noted. This also made it difficult to ascertain heart rate but there did not appear to be any significant excessive heart rate response to exercise. Patient became quite dyspneic and based on pulse oximetry (Effexor) also dropped her oxygen saturation slightly into the high 80s Functional aerobic impairment rated about 10% on the sedentary scale Impression: No clear evidence of ischemia Significant respiratory symptoms and probable pulmonary disease Perfusion imaging will be reported separately. Appears patient has adequate rate control and her tachycardia was appropriate in response to her level of exertion. Please note: Actual ECG tracings can be found in the PACS system.
--- NOTE | 2018-04-18 15:14 | DI.NM.S_ITS ---
DATE OF SERVICE: 04/17/2018 STUDY TYPE: Treadmill nuclear stress test, 2 day. RADIOISOTOPES: Resting technetium 99 millicuries dose is 25.3 mCi, and stress dose is 25.1 mCi technetium 99m. PRIORS: None for comparison. EXERCISE DESCRIPTION: Patient exercise for 3 minutes and 10 seconds reaching 4.6 METs and JOSE ROBERTO of +10% on sedentary scale suggestive of mildly impaired exercise tolerance. SYMPTOMS: No chest pain during the stress test. Patient did have dyspnea during stress test. ECG: Sinus rhythm with baseline ST changes at rest that worsened with exercise. ECG portion of the study is nondiagnostic. Occasional PACs and PVCs also noted during the study. NUCLEAR IMAGES: 1. Perfusion: There is a small mildly intense reversible defect in the apical lateral wall suggestive of small area of ischemia. Sum stress score is 1. It is possible that the small defect is artifact but it cannot be stated for sure as prone images were not obtained. 2. Gated Images: Gated images show normal wall motion, normal LV size (rest end-diastolic volume 72 cc) with normal systolic function (post stress EF of 75%). CONCLUSIONS: Probably abnormal treadmill nuclear stress test. 1. Probably abnormal perfusion images, consistent with small area of ischemia in the lateral apex. Artifact cannot be excluded as prone images were not obtained. 2. Normal left ventricular size, wall motion, and systolic function (post stress ejection fraction (EF) 75%). 3. Nondiagnostic ECG due to baseline ST changes at rest. 4. No chest pain during stress test. 5. Mildly reduced exercise capacity (4.6 METs, JOSE ROBERTO +10%). Target heart rate achieved. Appropriate blood pressure response to exercise. 6. No prior nuclear stress available for comparison. Molly Brown - SARAH/cindy/ab doc#: [id number]/job#: [id number] dd: 04/18/2018 13:16:00 dt: 04/18/2018 14:52:00 DICTATING /COPIES TO: Jolene Grady MD COPIES MNE: CHANDRAKANT
== END ==
PROVIDERS: PCP Internal Medicine; Visit Provider Internal Medicine
DX: I48.1 Persistent atrial fibrillation (principal)
CPT/HCPCS: 78452; 93016; 93017; 93018; A9502

== ENCOUNTER → 2018-09-16 10:53 | Outpatient (CLI) | payer MEDICARE, SELFPAY ==
[2018-09-16 12:01] LABS: INR 2.8 (0.9-1.3); Prothrombin Time 33.4 SECONDS (10.1-12.7)
== END ==
PROVIDERS: PCP Internal Medicine; Visit Provider Internal Medicine
DX: I48.1 Persistent atrial fibrillation (principal)
CPT/HCPCS: 36415; 85610

== ENCOUNTER → 2019-05-12 08:02 | Outpatient (CLI) | payer MEDICARE, SELFPAY ==
[2019-05-12 08:54] LABS: Add Manual Diff / Slide Review NO; Basophils Absolute Auto 100 /uL (0-100); Basophils Percent Auto 1.8 % (0-2); Eosinophils Absolute Auto 200 /uL (0-450); Hematocrit 44.3 % (36-46); Lymphocytes Absolute Auto 2100 /uL (1100-4500); Lymphocytes Percent Auto 28.8 % (25-40); Mean Corpuscular HGB Conc 33.8 % (30-36); Mean Corpuscular Hemoglobin 28.8 PG (26-34); Mean Corpuscular Volume 85.2 fL (80-100); Monocytes Absolute Auto 700 /uL (0-900); Monocytes Percent Auto 9.6 % (3-14); Neutrophils Absolute Auto 4100 /uL (1500-7000); Neutrophils Percent Auto 56.8 % (50-75); Platelet Count 222 X10^3/uL (150-400); Red Blood Cell Count 5.19 X10^6/uL (4.0-5.2); Red Cell Distribution Width 14.7 % (11.6-14.8); White Blood Cell Count 7.2 X10^3/uL (4.5-11.0)
[2019-05-12 09:30] LABS: Alanine Aminotransferase 24 IU/L (9-52); Albumin 4.2 g/dL (3.5-5.0); Albumin Globulin Ratio 1.4 (1.0-2.8); Alkaline Phosphatase 89 U/L (38-126); Aspartate Aminotransferase 19 IU/L (14-36); BUN Creatinine Ratio 21.7 (6-22); Bilirubin Total 0.8 mg/dL (0.2-1.3); Blood Urea Nitrogen 26 mg/dL (7-17); Calcium 9.5 mg/dL (8.4-10.2); Carbon Dioxide 29 mmol/L (22-32); Chloride 100 mmol/L (98-107); Estimated Glomerular Filt Rate 43.1 mL/min (>60); Globulin 3.1 g/dL (1.7-4.1); Glucose 125 mg/dL (80-110); HEMOLYSIS < 15 (0-50); Potassium 3.8 mmol/L (3.4-5.1); Sodium 140 mmol/L (137-145); Total Protein 7.3 g/dL (6.3-8.2)
== END ==
PROVIDERS: PCP Internal Medicine; Visit Provider Internal Medicine
DX: I10 Essential (primary) hypertension (principal); I48.1 Persistent atrial fibrillation; J44.9 Chronic obstructive pulmonary disease, unspecified
CPT/HCPCS: 36415; 80053; 85025

== ENCOUNTER → 2019-12-24 07:32 | Outpatient (CLI) | payer MEDICARE, SELFPAY ==
[2019-12-24 08:23] LABS: Hemoglobin A1C% w Est Avg Glu 6.3 % (4.0-6.0)
[2019-12-24 08:26] LABS: BUN Creatinine Ratio 22.5 (6-22); Blood Urea Nitrogen 29 mg/dL (7-17); Calcium 9.3 mg/dL (8.4-10.2); Carbon Dioxide 26 mmol/L (22-32); Chloride 103 mmol/L (98-107); Estimated Glomerular Filt Rate 39.7 mL/min (>60); Glucose 132 mg/dL (80-110); HEMOLYSIS < 15 (0-50); Potassium 3.5 mmol/L (3.4-5.1); Sodium 139 mmol/L (137-145)
== END ==
PROVIDERS: PCP Internal Medicine; Referring Provider Internal Medicine; Visit Provider Internal Medicine
DX: I10 Essential (primary) hypertension (principal); N18.2 Chronic kidney disease, stage 2 (mild); R73.02 Impaired glucose tolerance (oral)
CPT/HCPCS: 36415; 80048; 83036

== ENCOUNTER → 2020-04-26 08:05 | Outpatient (CLI) | payer MEDICARE, SELFPAY ==
[2020-04-26 08:49] LABS: Creatinine Urine Random 96.6 mg/dL; Hemoglobin A1C% w Est Avg Glu 6.2 % (4.0-6.0)
[2020-04-26 08:54] LABS: Microalbumi Creatinin Ratio Ur 36.2 ug/mg CR (<30); Microalbumin Urine Random 3.5 mg/dL (0-1.6)
[2020-04-26 08:55] LABS: BUN Creatinine Ratio 23.7 (6-22); Blood Urea Nitrogen 28 mg/dL (7-17); Calcium 9.6 mg/dL (8.4-10.2); Carbon Dioxide 30 mmol/L (22-32); Chloride 99 mmol/L (98-107); Estimated Glomerular Filt Rate 43.9 mL/min (>60); Glucose 119 mg/dL (80-110); HEMOLYSIS < 15 (0-50); Sodium 139 mmol/L (137-145)
== END ==
PROVIDERS: PCP Internal Medicine; Referring Provider Internal Medicine; Visit Provider Internal Medicine
DX: E11.9 Type 2 diabetes mellitus without complications (principal); N18.2 Chronic kidney disease, stage 2 (mild)
CPT/HCPCS: 36415; 80048; 82043; 82570; 83036

== ENCOUNTER → 2020-10-25 08:30 | Outpatient (CLI) | payer MEDICARE, SELFPAY ==
[2020-10-25 10:00] LABS: Hemoglobin A1C% w Est Avg Glu 5.7 % (4.0-6.0)
[2020-10-25 10:53] LABS: BUN Creatinine Ratio 23.8 (6-22); Blood Urea Nitrogen 34 mg/dL (7-17); Carbon Dioxide 28 mmol/L (22-32); Chloride 101 mmol/L (98-107); Estimated Glomerular Filt Rate 35.1 mL/min (>60); Glucose 115 mg/dL (80-110); HEMOLYSIS < 15 (0-50); Potassium 4.1 mmol/L (3.4-5.1); Sodium 134 mmol/L (137-145)
== END ==
PROVIDERS: PCP Internal Medicine; Referring Provider Internal Medicine; Visit Provider Internal Medicine
DX: E11.9 Type 2 diabetes mellitus without complications (principal); N18.2 Chronic kidney disease, stage 2 (mild)
CPT/HCPCS: 36415; 80048; 83036

== ENCOUNTER → 2021-02-22 09:33 | Outpatient (CLI) | payer MEDICARE, SELFPAY ==
[2021-02-22 10:30] LABS: INR 2.2 (0.9-1.3); Prothrombin Time 24.6 SECONDS (10.1-12.7)
== END ==
PROVIDERS: PCP Internal Medicine; Referring Provider Internal Medicine; Visit Provider Internal Medicine
DX: Z79.01 Long term (current) use of anticoagulants (principal)
CPT/HCPCS: 36415; 85610

== ENCOUNTER → 2021-04-25 08:09 | Outpatient (CLI) | payer MEDICARE, SELFPAY ==
[2021-04-25 08:54] LABS: Hemoglobin A1C% w Est Avg Glu 5.7 % (4.0-6.0)
[2021-04-25 10:36] LABS: Alanine Aminotransferase 19 IU/L (<35); Albumin 4.3 g/dL (3.5-5.0); Albumin Globulin Ratio 1.5 (1.0-2.8); Alkaline Phosphatase 78 U/L (38-126); Aspartate Aminotransferase 20 IU/L (14-36); BUN Creatinine Ratio 32.6 (6-22); Bilirubin Total 0.6 mg/dL (0.2-1.3); Blood Urea Nitrogen 43 mg/dL (7-17); Calcium 9.5 mg/dL (8.4-10.2); Carbon Dioxide 25 mmol/L (22-32); Chloride 104 mmol/L (98-107); Cholesterol 220 mg/dL (140-199); Estimated Glomerular Filt Rate 38.4 mL/min (>60); Globulin 2.9 g/dL (1.7-4.1); Glucose 115 mg/dL (80-110); HDL Cholesterol 67 mg/dL (40-60); HEMOLYSIS < 15 (0-50); LDL Cholesterol Calculated 131 mg/dL (<100); Potassium 4.8 mmol/L (3.4-5.1); Sodium 136 mmol/L (137-145); Total Protein 7.2 g/dL (6.3-8.2); Triglycerides 108 mg/dL (35-150)
== END ==
PROVIDERS: PCP Internal Medicine; Referring Provider Internal Medicine; Visit Provider Internal Medicine
DX: E11.9 Type 2 diabetes mellitus without complications (principal); I10 Essential (primary) hypertension; N18.31 Chronic kidney disease, stage 3a; Z13.220 Encounter for screening for lipoid disorders
CPT/HCPCS: 36415; 80053; 80061; 83036

== ENCOUNTER → 2021-09-20 10:42 | Outpatient (CLI) | payer MEDICARE, SELFPAY ==
[2021-09-20 12:35] LABS: Add Manual Diff / Slide Review NO; Basophils Absolute Auto 100 /uL (0-100); Basophils Percent Auto 1.3 % (0-2); Eosinophils Absolute Auto 200 /uL (0-450); Eosinophils Percent Auto 1.8 % (2-4); Hematocrit 38.8 % (36-46); Lymphocytes Absolute Auto 1600 /uL (1100-4500); Lymphocytes Percent Auto 15.9 % (25-40); Mean Corpuscular HGB Conc 33.5 % (30-36); Mean Corpuscular Hemoglobin 29.1 PG (26-34); Mean Corpuscular Volume 86.7 fL (80-100); Monocytes Absolute Auto 800 /uL (0-900); Monocytes Percent Auto 8.3 % (3-14); Neutrophils Absolute Auto 7300 /uL (1500-7000); Neutrophils Percent Auto 72.7 % (50-75); Platelet Count 212 X10^3/uL (150-400); Red Blood Cell Count 4.48 X10^6/uL (4.0-5.2); Red Cell Distribution Width 14.2 % (11.6-14.8)
[2021-09-20 12:48] LABS: INR 2.9 (0.9-1.3); Prothrombin Time 33.7 SECONDS (10.1-12.7)
[2021-09-20 12:53] LABS: Hemoglobin A1C% w Est Avg Glu 5.7 % (4.0-6.0)
[2021-09-20 12:59] LABS: Alanine Aminotransferase 18 IU/L (<35); Albumin Globulin Ratio 1.4 (1.0-2.8); Alkaline Phosphatase 67 U/L (38-126); Aspartate Aminotransferase 22 IU/L (14-36); BUN Creatinine Ratio 25.3 (6-22); Bilirubin Total 0.6 mg/dL (0.2-1.3); Blood Urea Nitrogen 42 mg/dL (7-17); Calcium 8.9 mg/dL (8.4-10.2); Carbon Dioxide 23 mmol/L (22-32); Chloride 106 mmol/L (98-107); Cholesterol 193 mg/dL (140-199); Estimated Glomerular Filt Rate 29.5 mL/min (>60); Globulin 2.9 g/dL (1.7-4.1); Glucose 107 mg/dL (80-110); HDL Cholesterol 70 mg/dL (40-60); HEMOLYSIS < 15 (0-50); LDL Cholesterol Calculated 101 mg/dL (<100); Potassium 4.4 mmol/L (3.4-5.1); Sodium 138 mmol/L (137-145); Total Protein 6.9 g/dL (6.3-8.2); Triglycerides 109 mg/dL (35-150)
== END ==
PROVIDERS: PCP Internal Medicine; Referring Provider Internal Medicine; Visit Provider Internal Medicine
DX: E11.9 Type 2 diabetes mellitus without complications (principal); Z79.01 Long term (current) use of anticoagulants; I10 Essential (primary) hypertension
CPT/HCPCS: 36415; 80053; 80061; 83036; 85025; 85610

== ENCOUNTER → 2022-04-04 07:24 | Outpatient (CLI) | payer MEDICARE, SELFPAY ==
[2022-04-04 09:23] LABS: INR 2.5 (0.9-1.3)
[2022-04-04 09:40] LABS: Alanine Aminotransferase 15 IU/L (<35); Albumin 4.2 g/dL (3.5-5.0); Albumin Globulin Ratio 1.4 (1.0-2.8); Alkaline Phosphatase 85 U/L (38-126); Aspartate Aminotransferase 18 IU/L (14-36); BUN Creatinine Ratio 26.2 (6-22); Bilirubin Total 0.9 mg/dL (0.2-1.3); Blood Urea Nitrogen 37 mg/dL (7-17); Calcium 9.2 mg/dL (8.4-10.2); Carbon Dioxide 24 mmol/L (22-32); Chloride 103 mmol/L (98-107); Cholesterol 190 mg/dL (140-199); Estimated Glomerular Filt Rate 37 mL/min (>60); Globulin 3.1 g/dL (1.7-4.1); Glucose 119 mg/dL (80-110); HDL Cholesterol 61 mg/dL (40-60); HEMOLYSIS < 15 (0-50); LDL Cholesterol Calculated 115 mg/dL (<100); Potassium 4.4 mmol/L (3.4-5.1); Sodium 138 mmol/L (137-145); Total Protein 7.3 g/dL (6.3-8.2); Triglycerides 70 mg/dL (35-150)
== END ==
PROVIDERS: PCP Internal Medicine; Referring Provider Internal Medicine; Visit Provider Internal Medicine
DX: Z79.01 Long term (current) use of anticoagulants (principal); E11.9 Type 2 diabetes mellitus without complications; I10 Essential (primary) hypertension; J44.9 Chronic obstructive pulmonary disease, unspecified; N18.31 Chronic kidney disease, stage 3a; I48.19 Other persistent atrial fibrillation
CPT/HCPCS: 36415; 80053; 80061; 83036; 85610

== ENCOUNTER → 2022-04-25 09:10 | Outpatient (CLI) | payer MEDICARE, SELFPAY ==
[2022-04-25 10:52] LABS: INR 2.8 (0.9-1.3); Prothrombin Time 32.2 SECONDS (10.1-12.7)
== END ==
PROVIDERS: PCP Internal Medicine; Referring Provider Internal Medicine; Visit Provider Internal Medicine
DX: Z79.01 Long term (current) use of anticoagulants (principal); I48.19 Other persistent atrial fibrillation
CPT/HCPCS: 36415; 85610

== ENCOUNTER → 2022-05-16 09:18 | Outpatient (CLI) | payer MEDICARE, SELFPAY ==
[2022-05-16 10:49] LABS: INR 2.5 (0.9-1.3); Prothrombin Time 29.3 SECONDS (10.1-12.7)
== END ==
PROVIDERS: PCP Internal Medicine; Referring Provider Internal Medicine; Visit Provider Internal Medicine
DX: I48.19 Other persistent atrial fibrillation (principal); Z79.01 Long term (current) use of anticoagulants
CPT/HCPCS: 36415; 85610

== ENCOUNTER → 2022-06-13 09:19 | Outpatient (CLI) | payer MEDICARE, SELFPAY ==
[2022-06-13 11:08] LABS: INR 2.7 (0.9-1.3); Prothrombin Time 31.3 SECONDS (10.1-12.7)
== END ==
PROVIDERS: PCP Internal Medicine; Referring Provider Internal Medicine; Visit Provider Internal Medicine
DX: I48.19 Other persistent atrial fibrillation (principal); Z79.01 Long term (current) use of anticoagulants
CPT/HCPCS: 36415; 85610

== ENCOUNTER → 2022-07-11 08:06 | Outpatient (CLI) | payer MEDICARE, SELFPAY ==
[2022-07-11 09:39] LABS: INR 3.4 (0.9-1.3); Prothrombin Time 39.6 SECONDS (10.1-12.7)
== END ==
PROVIDERS: PCP Internal Medicine; Referring Provider Internal Medicine; Visit Provider Internal Medicine
DX: Z79.01 Long term (current) use of anticoagulants (principal); I48.21 Permanent atrial fibrillation; I48.91 Unspecified atrial fibrillation
CPT/HCPCS: 36415; 85610

== ENCOUNTER → 2022-08-07 10:35 | Outpatient (CLI) | payer MEDICARE, SELFPAY ==
[2022-08-07 11:16] LABS: INR 2.5 (0.9-1.3); Prothrombin Time 28.8 SECONDS (10.1-12.7)
== END ==
PROVIDERS: PCP Internal Medicine; Referring Provider Internal Medicine; Visit Provider Internal Medicine
DX: I48.19 Other persistent atrial fibrillation (principal); Z79.01 Long term (current) use of anticoagulants
CPT/HCPCS: 36415; 85610

== ENCOUNTER → 2022-09-05 09:32 | Outpatient (CLI) | payer MEDICARE, SELFPAY ==
[2022-09-05 10:07] LABS: INR 2.5 (0.9-1.3)
== END ==
PROVIDERS: PCP Internal Medicine; Referring Provider Internal Medicine; Visit Provider Internal Medicine
DX: Z79.01 Long term (current) use of anticoagulants (principal); I48.19 Other persistent atrial fibrillation
CPT/HCPCS: 36415; 85610

== ENCOUNTER → 2022-09-14 11:47 | Outpatient (CLI) | payer MEDICARE, SELFPAY ==
[2022-09-14 13:28] LABS: Alanine Aminotransferase 19 IU/L (<35); Albumin 4.1 g/dL (3.5-5.0); Albumin Globulin Ratio 1.1 (1.0-2.8); Alkaline Phosphatase 86 U/L (38-126); Aspartate Aminotransferase 20 IU/L (14-36); BUN Creatinine Ratio 31.7 (6-22); Bilirubin Total 0.7 mg/dL (0.2-1.3); Blood Urea Nitrogen 51 mg/dL (7-17); Calcium 8.6 mg/dL (8.4-10.2); Carbon Dioxide 24 mmol/L (22-32); Chloride 105 mmol/L (98-107); Estimated Glomerular Filt Rate 31 mL/min (>60); Globulin 3.6 g/dL (1.7-4.1); Glucose 138 mg/dL (80-110); Potassium 4.1 mmol/L (3.4-5.1); Sodium 138 mmol/L (137-145); Total Protein 7.7 g/dL (6.3-8.2)
[2022-09-14 13:29] LABS: HEMOLYSIS < 15 (0-50)
[2022-09-14 19:12] LABS: Hemoglobin A1C% w Est Avg Glu 6.1 % (4.0-6.0)
== END ==
PROVIDERS: PCP Internal Medicine; Referring Provider Internal Medicine; Visit Provider Internal Medicine
DX: E11.9 Type 2 diabetes mellitus without complications (principal); I10 Essential (primary) hypertension; N18.31 Chronic kidney disease, stage 3a
CPT/HCPCS: 36415; 80053; 83036

== ENCOUNTER → 2022-10-10 10:24 | Outpatient (CLI) | payer MEDICARE, SELFPAY ==
[2022-10-10 13:09] LABS: INR 1.9 (0.9-1.3); Prothrombin Time 21.8 SECONDS (10.1-12.7)
== END ==
PROVIDERS: Nurse Practitioner; PCP Internal Medicine; Referring Provider Internal Medicine; Visit Provider Internal Medicine
DX: Z79.01 Long term (current) use of anticoagulants (principal)
CPT/HCPCS: 36415; 85610

== ENCOUNTER → 2023-03-13 10:37 | Outpatient (CLI) | payer MEDICARE, SELFPAY ==
[2023-03-13 12:21] LABS: Prothrombin Time 54.7 SECONDS (10.1-12.7)
[2023-03-13 12:27] LABS: INR 4.7 (0.9-1.3)
[2023-03-13 13:12] LABS: Alanine Aminotransferase 19 IU/L (<35); Albumin 4.2 g/dL (3.5-5.0); Albumin Globulin Ratio 1.3 (1.0-2.8); Alkaline Phosphatase 88 U/L (38-126); Aspartate Aminotransferase 18 IU/L (14-36); BUN Creatinine Ratio 30.2 (6-22); Bilirubin Total 0.7 mg/dL (0.2-1.3); Blood Urea Nitrogen 58 mg/dL (7-17); Calcium 9.1 mg/dL (8.4-10.2); Carbon Dioxide 21 mmol/L (22-32); Chloride 102 mmol/L (98-107); Estimated Glomerular Filt Rate 25 mL/min (>60); Globulin 3.2 g/dL (1.7-4.1); Glucose 112 mg/dL (80-110); HEMOLYSIS < 15 (0-50); Potassium 4.5 mmol/L (3.4-5.1); Sodium 135 mmol/L (137-145); Total Protein 7.4 g/dL (6.3-8.2)
[2023-03-15 05:52] LABS: Labcorp Hemoglobin (Hb) A1c 6.4 % (4.8-5.6)
== END ==
PROVIDERS: PCP Internal Medicine; Referring Provider Internal Medicine; Visit Provider Internal Medicine
DX: I82.409 Acute embolism and thrombosis of unspecified deep veins of unspecified lower extremity (principal); I10 Essential (primary) hypertension; N18.31 Chronic kidney disease, stage 3a; E11.9 Type 2 diabetes mellitus without complications
CPT/HCPCS: 36415; 80053; 83036; 85610

== ENCOUNTER → 2023-04-19 10:54 | Outpatient (CLI) | payer MEDICARE, SELFPAY ==
[2023-04-19 12:23] LABS: Prothrombin Time 65.2 SECONDS (10.1-12.7)
[2023-04-19 12:58] LABS: INR 5.6 (0.9-1.3)
== END ==
PROVIDERS: PCP Internal Medicine; Referring Provider Internal Medicine; Visit Provider Internal Medicine
DX: Z79.01 Long term (current) use of anticoagulants (principal); N18.31 Chronic kidney disease, stage 3a
CPT/HCPCS: 36415; 85610

== ENCOUNTER → 2023-05-18 10:35 | Outpatient (CLI) | payer MEDICARE, SELFPAY ==
[2023-05-18 12:34] LABS: BUN Creatinine Ratio 31.3 (6-22); Blood Urea Nitrogen 66 mg/dL (7-17); Calcium 9.7 mg/dL (8.4-10.2); Carbon Dioxide 25 mmol/L (22-32); Chloride 104 mmol/L (98-107); Estimated Glomerular Filt Rate 23 mL/min (>60); Glucose 102 mg/dL (80-110); HEMOLYSIS < 15 (0-50); Potassium 4.9 mmol/L (3.4-5.1); Sodium 139 mmol/L (137-145)
== END ==
PROVIDERS: PCP Internal Medicine; Referring Provider Internal Medicine; Visit Provider Internal Medicine
DX: N18.31 Chronic kidney disease, stage 3a (principal); I10 Essential (primary) hypertension
CPT/HCPCS: 36415; 80048

== ENCOUNTER → 2023-06-28 15:54 | Outpatient (CLI) | payer MEDICARE, SELFPAY ==
[2023-06-28 18:11] LABS: BUN Creatinine Ratio 26.7 (6-22); Blood Urea Nitrogen 52 mg/dL (7-17); Calcium 9.7 mg/dL (8.4-10.2); Carbon Dioxide 25 mmol/L (22-32); Chloride 102 mmol/L (98-107); Estimated Glomerular Filt Rate 25 mL/min (>60); Glucose 95 mg/dL (80-110); HEMOLYSIS < 15 (0-50); Potassium 4.3 mmol/L (3.4-5.1); Sodium 139 mmol/L (137-145)
[2023-06-28 18:15] LABS: Hemoglobin A1C% w Est Avg Glu 6.3 % (4.0-6.0)
== END ==
PROVIDERS: PCP Internal Medicine; Referring Provider Internal Medicine; Visit Provider Internal Medicine
DX: I10 Essential (primary) hypertension (principal); E11.9 Type 2 diabetes mellitus without complications; N18.31 Chronic kidney disease, stage 3a
CPT/HCPCS: 36415; 80048; 83036

== ENCOUNTER → 2023-07-09 13:36 | Outpatient (CLI) | payer MEDICARE, SELFPAY ==
[2023-07-09 14:04] LABS: Prothrombin Time 60.4 SECONDS (9.4-12.5)
[2023-07-09 14:06] LABS: INR 5.2 (0.9-1.3)
== END ==
PROVIDERS: PCP Internal Medicine; Referring Provider Internal Medicine; Visit Provider Internal Medicine
DX: I82.409 Acute embolism and thrombosis of unspecified deep veins of unspecified lower extremity (principal)
CPT/HCPCS: 36415; 85610

== ENCOUNTER → 2023-08-21 12:48 | Outpatient (CLI) | payer MEDICARE, SELFPAY ==
[2023-08-21 13:41] LABS: Prothrombin Time 55.4 SECONDS (9.4-12.5)
[2023-08-21 13:58] LABS: INR 4.7 (0.9-1.3)
== END ==
PROVIDERS: PCP Internal Medicine; Referring Provider Internal Medicine; Visit Provider Internal Medicine
DX: I82.409 Acute embolism and thrombosis of unspecified deep veins of unspecified lower extremity (principal)
CPT/HCPCS: 36415; 85610

== ENCOUNTER → 2023-08-24 10:34 | Outpatient (CLI) | payer MEDICARE, SELFPAY | LOC: WC 10:42 | PROVIDERS: PCP Internal Medicine; Referring Provider Physician Assistant; Visit Provider Physician Assistant | DX: S81.812A Laceration without foreign body, left lower leg, initial encounter (principal); R60.0 Localized edema; E11.628 Type 2 diabetes mellitus with other skin complications; I48.91 Unspecified atrial fibrillation; I10 Essential (primary) hypertension; N18.9 Chronic kidney disease, unspecified; J44.9 Chronic obstructive pulmonary disease, unspecified; Z79.1 Long term (current) use of non-steroidal anti-inflammatories (NSAID) | CPT/HCPCS: 11042; 11045; 99204; 99213 ==

== ENCOUNTER → 2023-09-04 12:59 | Outpatient (CLI) | payer MEDICARE, SELFPAY ==
--- NOTE | 2023-09-04 13:00 | DI.US.S_ITS ---
PROCEDURE: US ARTERIAL DUPLEX LE LT INDICATIONS: NONHEALING WOUND LEFT LOWER EXTREMITY TECHNIQUE: Color and pulse Doppler interrogation was performed of the left lower extremity arterial system, with image documentation. COMPARISON: None. FINDINGS: Common femoral artery: 140 cm/sec, with triphasic flow. Deep femoral artery: 93 cm/sec, with biphasic flow. Proximal superficial femoral artery: 121 cm/sec, with triphasic flow. Mid superficial femoral artery: 120 cm/sec, with triphasic flow. Distal superficial femoral artery: 77 cm/sec, with biphasic flow. Popliteal artery: 66 cm/sec, with biphasic flow. Posterior tibial artery: 54 cm/sec, with biphasic flow. Anterior tibial artery/dorsalis pedis: 88 cm/sec, with biphasic flow. Chaudhry-scale imaging description: Widely patent vessels IMPRESSION: Unremarkable left lower extremity duplex arterial ultrasound. Dictated by: Wily Rene M.D. on 09/04/2023 at 19:21 Approved by: Wily Rene M.D. on 09/04/2023 at 19:22
== END ==
PROVIDERS: PCP Internal Medicine; Referring Provider Physician Assistant; Visit Provider Physician Assistant
DX: L97.929 Non-pressure chronic ulcer of unspecified part of left lower leg with unspecified severity (principal)
CPT/HCPCS: 93926

== ENCOUNTER → 2023-09-04 14:27 | Outpatient (CLI) | payer MEDICARE, SELFPAY | PROVIDERS: PCP Internal Medicine; Referring Provider Physician Assistant; Visit Provider Surgery | DX: S81.812A Laceration without foreign body, left lower leg, initial encounter (principal); I96 Gangrene, not elsewhere classified; R60.0 Localized edema; L97.929 Non-pressure chronic ulcer of unspecified part of left lower leg with unspecified severity; E11.628 Type 2 diabetes mellitus with other skin complications; J44.9 Chronic obstructive pulmonary disease, unspecified; Z79.01 Long term (current) use of anticoagulants | CPT/HCPCS: 11042; 11045; 93926; 99213 ==

== ENCOUNTER → 2023-09-14 10:25 | Outpatient (CLI) | payer MEDICARE, SELFPAY ==
[2023-09-14 12:51] LABS: Hemoglobin A1C% w Est Avg Glu 5.8 % (4.0-6.0)
== END ==
PROVIDERS: PCP Internal Medicine; Referring Provider Internal Medicine; Visit Provider Internal Medicine
DX: E11.9 Type 2 diabetes mellitus without complications (principal)
CPT/HCPCS: 36415; 83036

== ENCOUNTER → 2023-09-14 10:51 | Outpatient (CLI) | payer MEDICARE, SELFPAY | PROVIDERS: PCP Internal Medicine; Referring Provider Physician Assistant; Visit Provider Physician Assistant | DX: S81.812A Laceration without foreign body, left lower leg, initial encounter (principal); I96 Gangrene, not elsewhere classified; R60.0 Localized edema; L53.9 Erythematous condition, unspecified; E11.628 Type 2 diabetes mellitus with other skin complications; I10 Essential (primary) hypertension; I48.91 Unspecified atrial fibrillation | CPT/HCPCS: 11042; 11045; 36415; 83036; 99214 ==

== ENCOUNTER → 2023-09-21 11:39 | Outpatient (CLI) | payer MEDICARE, SELFPAY | PROVIDERS: PCP Internal Medicine; Referring Provider Physician Assistant; Visit Provider Physician Assistant | DX: S81.812A Laceration without foreign body, left lower leg, initial encounter (principal); R60.0 Localized edema; E11.628 Type 2 diabetes mellitus with other skin complications; I48.91 Unspecified atrial fibrillation; I10 Essential (primary) hypertension; N19 Unspecified kidney failure; J44.9 Chronic obstructive pulmonary disease, unspecified | CPT/HCPCS: 11042; 99213 ==

== ENCOUNTER → 2023-09-28 10:05 | Outpatient (CLI) | payer MEDICARE, SELFPAY | LOC: WC 10:06 | PROVIDERS: PCP Internal Medicine; Referring Provider Internal Medicine; Visit Provider Physician Assistant | DX: S81.812A Laceration without foreign body, left lower leg, initial encounter (principal); L98.8 Other specified disorders of the skin and subcutaneous tissue; R60.0 Localized edema; E11.628 Type 2 diabetes mellitus with other skin complications; I48.91 Unspecified atrial fibrillation; I10 Essential (primary) hypertension; N18.9 Chronic kidney disease, unspecified; J44.9 Chronic obstructive pulmonary disease, unspecified | CPT/HCPCS: 11042; 99213 ==

== ENCOUNTER → 2023-10-05 09:42 | Outpatient (CLI) | payer MEDICARE, SELFPAY | LOC: WC 09:43 | PROVIDERS: PCP Internal Medicine; Referring Provider Physician Assistant; Visit Provider Physician Assistant | DX: S81.812A Laceration without foreign body, left lower leg, initial encounter (principal); L98.8 Other specified disorders of the skin and subcutaneous tissue; R60.0 Localized edema; E11.628 Type 2 diabetes mellitus with other skin complications; I48.91 Unspecified atrial fibrillation; I10 Essential (primary) hypertension; J44.9 Chronic obstructive pulmonary disease, unspecified | CPT/HCPCS: 11042; 97607; 99213 ==

== ENCOUNTER → 2023-10-12 10:10 | Outpatient (CLI) | payer MEDICARE, SELFPAY | LOC: WC 10:11 | PROVIDERS: PCP Internal Medicine; Referring Provider Physician Assistant; Visit Provider Physician Assistant | DX: S81.812A Laceration without foreign body, left lower leg, initial encounter (principal); R60.0 Localized edema; E11.628 Type 2 diabetes mellitus with other skin complications; I10 Essential (primary) hypertension | CPT/HCPCS: 11042; 99213 ==

== ENCOUNTER → 2023-10-26 09:58 | Outpatient (CLI) | payer MEDICARE, SELFPAY | LOC: WC 09:59 | PROVIDERS: PCP Internal Medicine; Referring Provider Physician Assistant; Visit Provider Nurse Practitioner Family | DX: S81.812A Laceration without foreign body, left lower leg, initial encounter (principal); R60.0 Localized edema; E11.628 Type 2 diabetes mellitus with other skin complications; I48.91 Unspecified atrial fibrillation | CPT/HCPCS: 11042; 99214 ==

== ENCOUNTER → 2023-11-01 10:08 | Outpatient (CLI) | payer MEDICARE, SELFPAY ==
[2023-11-01 10:49] LABS: Add Manual Diff / Slide Review NO; Basophils Absolute Auto 100 /uL (0-100); Basophils Percent Auto 1.4 % (0-2); Eosinophils Absolute Auto 200 /uL (0-450); Eosinophils Percent Auto 2.3 % (2-4); Hematocrit 35.8 % (36-46); Hemoglobin 12.1 g/dL (12.0-16.0); Lymphocytes Absolute Auto 1900 /uL (1100-4500); Lymphocytes Percent Auto 23.6 % (25-40); Mean Corpuscular HGB Conc 33.7 % (30-36); Mean Corpuscular Hemoglobin 28.1 PG (26-34); Mean Corpuscular Volume 83.3 fL (80-100); Monocytes Absolute Auto 900 /uL (0-900); Monocytes Percent Auto 10.9 % (3-14); Neutrophils Absolute Auto 4900 /uL (1500-7000); Neutrophils Percent Auto 61.8 % (50-75); Platelet Count 204 X10^3/uL (150-400); Red Cell Distribution Width 16.2 % (11.6-14.8)
[2023-11-01 11:08] LABS: Erythrocyte Sedimentation Rate 35 MM/HR (0-20)
[2023-11-01 11:26] LABS: Alanine Aminotransferase 19 IU/L (<35); Albumin 4.3 g/dL (3.5-5.0); Albumin Globulin Ratio 1.3 (1.0-2.8); Alkaline Phosphatase 101 U/L (38-126); Aspartate Aminotransferase 20 IU/L (14-36); BUN Creatinine Ratio 28.4 (6-22); Bilirubin Total 0.7 mg/dL (0.2-1.3); Blood Urea Nitrogen 57 mg/dL (7-17); C-Reactive Protein Quant 1.1 mg/dL (<1.0); Calcium 9.2 mg/dL (8.4-10.2); Carbon Dioxide 26 mmol/L (22-32); Chloride 108 mmol/L (98-107); Estimated Glomerular Filt Rate 24 mL/min (>60); Globulin 3.3 g/dL (1.7-4.1); Glucose 106 mg/dL (80-110); HEMOLYSIS < 15 (0-50); Lipase 170 U/L (23-300); Potassium 4.6 mmol/L (3.4-5.1); Sodium 142 mmol/L (137-145); Total Protein 7.6 g/dL (6.3-8.2)
== END ==
PROVIDERS: PCP Internal Medicine; Referring Provider Internal Medicine; Visit Provider Internal Medicine
DX: R19.7 Diarrhea, unspecified (principal); I10 Essential (primary) hypertension; N18.31 Chronic kidney disease, stage 3a
CPT/HCPCS: 36415; 80053; 83690; 85025; 85651; 86140

== ENCOUNTER → 2023-11-02 11:48 | Outpatient (CLI) | payer MEDICARE, SELFPAY | LOC: WC 11:49 | PROVIDERS: PCP Internal Medicine; Referring Provider Physician Assistant; Visit Provider Physician Assistant | DX: S81.812A Laceration without foreign body, left lower leg, initial encounter (principal); R60.0 Localized edema; E11.628 Type 2 diabetes mellitus with other skin complications; I10 Essential (primary) hypertension; I48.91 Unspecified atrial fibrillation | CPT/HCPCS: 11042; 99213 ==

== ENCOUNTER → 2023-11-14 10:44 | Outpatient (CLI) | payer MEDICARE, SELFPAY | LOC: WC 10:45 | PROVIDERS: Family Provider Internal Medicine; PCP Internal Medicine; Referring Provider Physician Assistant; Visit Provider Surgery | DX: S81.812A Laceration without foreign body, left lower leg, initial encounter (principal); R60.0 Localized edema; E11.628 Type 2 diabetes mellitus with other skin complications; J44.9 Chronic obstructive pulmonary disease, unspecified; I10 Essential (primary) hypertension; N18.9 Chronic kidney disease, unspecified | CPT/HCPCS: 97602; 99213 ==

== ENCOUNTER → 2023-11-21 10:50 | Outpatient (CLI) | payer MEDICARE, SELFPAY | LOC: WC 10:51 | PROVIDERS: Family Provider Internal Medicine; PCP Internal Medicine; Referring Provider Physician Assistant; Visit Provider Surgery | DX: S81.812A Laceration without foreign body, left lower leg, initial encounter (principal); R60.0 Localized edema; E11.628 Type 2 diabetes mellitus with other skin complications; J44.9 Chronic obstructive pulmonary disease, unspecified; N18.9 Chronic kidney disease, unspecified | CPT/HCPCS: 11042 ==

== ENCOUNTER → 2023-11-28 10:11 | Outpatient (CLI) | payer MEDICARE, SELFPAY | LOC: WC 10:12 | PROVIDERS: Family Provider Internal Medicine; PCP Internal Medicine; Referring Provider Physician Assistant; Visit Provider Surgery | DX: S81.812A Laceration without foreign body, left lower leg, initial encounter (principal); R60.0 Localized edema; E11.628 Type 2 diabetes mellitus with other skin complications; J44.9 Chronic obstructive pulmonary disease, unspecified; N18.9 Chronic kidney disease, unspecified | CPT/HCPCS: 15271; 99213; Q4196 ==

== ENCOUNTER → 2023-12-07 10:15 | Outpatient (CLI) | payer MEDICARE, SELFPAY | PROVIDERS: Family Provider Internal Medicine; PCP Internal Medicine; Referring Provider Physician Assistant; Visit Provider Physician Assistant | DX: S81.812A Laceration without foreign body, left lower leg, initial encounter (principal); R60.0 Localized edema; E11.628 Type 2 diabetes mellitus with other skin complications; I11.0 Hypertensive heart disease with heart failure; I48.91 Unspecified atrial fibrillation | CPT/HCPCS: 15271; 99214; Q4196 ==

== ENCOUNTER → 2023-12-13 09:47 | Outpatient (CLI) | payer MEDICARE, SELFPAY | LOC: WC 09:59 | PROVIDERS: Family Provider Internal Medicine; PCP Internal Medicine; Referring Provider Physician Assistant; Visit Provider Surgery | DX: S81.812D Laceration without foreign body, left lower leg, subsequent encounter (principal); R60.0 Localized edema | CPT/HCPCS: 99212; 99213 ==

== ENCOUNTER 2024-01-08 10:30 | Outpatient (RCR) | payer MEDICARE, SELFPAY ==
--- NOTE | 2023-11-14 15:01 | PT.OIE ---
Current Diagnoses Pain in left knee (11/14/23) Pain in left ankle and joints of left foot (11/14/23) Past Medical History (Last Updated 09/19/22 @ 15:26 by Alexx Anderson MD) Chronic obstructive pulmonary disease (02/22/15) Chronic renal failure, stage 3a Diabetes type 2, controlled Esophageal reflux (08/07/12) HTN (hypertension), benign (08/07/12) Macular edema 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 Morbid obesity with body mass index (BMI) of 40.0 to 49.9 Nasopharyngitis, chronic Obstructive sleep apnea (~2011) Persistent atrial fibrillation PSVT (paroxysmal supraventricular tachycardia) Spinal stenosis, cervical region (10/23/11) Visit Care Team Role Provider Type Alexx Anderson MD Attending Provider Physician Family Provider Primary Care Provider Referring Provider Specialty: Internal Medicine Address: [address] [place] [address], [address], [facility] Email: [email or web address] Physical Therapy Initial Evaluation PT-OP-A Visit Information Start: 11/13/23 12:25 Freq: Status: Active Protocol: Document 11/14/23 09:46 MB (Rec: 11/14/23 10:10 [id number]) Out-Patient Physical Therapy Visit Information Visit Information Visit Type Initial Evaluation Visit Note Medicare, 08/31 before KX Daughter is Jessy Visit Start Time 09:46 Visit Stop Time 10:30 Visit Number 1 Number of SENIOR STORAGE ENGINEER Visits 0 Evaluation Information Evaluation Date 11/14/23 Precautions Precautions Fall risk, not walking much PT-OP-B Current Condition Start: 11/13/23 12:25 Freq: Status: Active Protocol: Document 11/14/23 09:46 MB (Rec: 11/14/23 10:10 MB [id number]) Current Condition History of Current Condition Onset Date 08/01/23 Current Complaints Left knee pain, progressive weakness and globalized pain History of Current Condition Pt lives in Senior Housing and on 08/01/23, she had a fall trying to get into the transit bus. Before the injury, she was walking with rollator in housing. After the laceration to left baez, she had stitches and outpatient wound care that finishes today. Pt thinks that the wound is healed. Pt has B tubagrip type dressings from ankles to higher baez that is turniquette in nature. She does not like stockings because they are hot and hard to get on. Daughter is nearby and she and pt state that pt does not have a lot of arm strength. Pt had left knee injection last week by Dr. Ivan. She was told that she has beautiful knees for an 83 year old and that the joints look good. Pt and daughter are adamant that she has never been told that she has arthritis in either knee. PT does not have access to knee x -ray that was done at [facility]. Pt is using w/c. She has had no more falls since July. She is scooting while sitting on rollator in the apartment. Prior Treatments and Tests Wound care LLE and dressings Treatment Goals Patient/Caregiver Goals To be able to walk and go back to the dining room. PT-OP-C Subjective Start: 11/13/23 12:25 Freq: Status: Active Protocol: Document 11/14/23 09:46 MB (Rec: 11/14/23 12:24 MB [id number]) OP-PT Subjective Patient Comments Patient Comments See history of current condition Patient Questionnaires Lower Extremity Functional Scale LEFS Score 13/80 LEFS Impairment 60 to 79% Impaired (Score 17- 31) PT-OP-D Balance Start: 11/13/23 12:25 Freq: Status: Active Protocol: Document 11/14/23 09:46 MB (Rec: 11/14/23 14:40 MB [id number]) Balance Tests Other Other Balance Tests Performed Pt requires CGA and AD for static standing, high risk for falls, imbalance PT-OP-G Mobility & Gait Start: 11/13/23 12:25 Freq: Status: Active Protocol: Document 11/14/23 09:46 MB (Rec: 11/14/23 14:38 MB [id number]) OP Mobility Evaluation Transfers Sit to Stand UE support and pt tends to reach for locked rollator and she requires CGA SPT with CGA and pt taking shuffling steps and flexed posture, evidence of imbalance OP Gait Assessment Comments Gait Comments PT sets up clinic rollator and pt requires CGA and cues for gait 5' forward and 5' backwards. Step-to maisha with left and then right LE and decreased foot clearance B , flexed posture, some more tactile assistance with retropulsion, pt moves slowly and is not very confident with mobility PT-OP-M Strength Start: 11/13/23 12:25 Freq: Status: Active Protocol: Document 11/14/23 09:46 MB (Rec: 11/14/23 14:42 MB [id number]) Hip Strength Hip Manual Muscle Testing Left Flexion (L2) 3+ Fair+ Right Flexion (L2) 3+ Fair+ Knee Strength Knee Manual Muscle Testing Left Flexion (S2) 4+ Good+ Extension (L3) 3 Fair Right Flexion (S2) 4- Good- Extension (L3) 3+ Fair+ Ankle/Foot Strength Ankle and Foot Manual Muscle Testing Left Dorsiflexion (L4) 4+ Good+ Plantarflexion (S1) 5 Normal Right Dorsiflexion (L4) 5 Normal Plantarflexion (S1) 5 Normal PT-OP-Q Treatments Start: 11/13/23 12:25 Freq: Status: Active Protocol: Document 11/14/23 09:46 MB (Rec: 11/14/23 12:26 MB [id number]) Self-Care/Home Management Treatment Education Patient Education Joint Protection,Pain Management Other Education Extensive discussion and education to pt and daughter about risks of tourniquette dressing LEs for increasing ankle edema and knee edema and pain. Left ankle and knee with increased swelling. Ed pt and daughter to ask wound care about their recommendations for d/c today, benefits of graduated compression from feet up to above the knee to help with LE edema, knee pain and knee edema PT-OP-T Assessment and Plan Start: 11/13/23 12:25 Freq: Status: Active Protocol: Document 11/14/23 09:46 MB (Rec: 11/14/23 15:00 MB [id number]) Physical Therapy Assessment Rehab Potential Rehabilitation Potential Fair Evaluation Complexity Number of Personal Factors/Comorbidities 3 or More Number of Body Systems Impaired 3 Clinical Presentation at Evaluation Evolving Impairments Impairments Activity Tolerance,Balance, Coordination,Edema,Functional Activities,Functional Mobility ,Gait,Integument,Pain,Posture, ROM,Soft Tissue Mobility, Strength,Transfers,Vestibular Other Concerns Fall Risk High Goals 5 Impairment Lack of HEP Retirement Goal (LTG) Pt will perform HEP with I including gentle flexibility, strengthening, balance and pre -gait exercises to improve functional strength, mobility and balance. LTG Duration 8 weeks 4 Impairment CGA or more assist for transfers Retirement Goal (LTG) Pt will perform STS, SPT and all other basic transfers with mod I using LRAD to improve safety at home. LTG Duration 8 weeks 3 Impairment Weakness Extractor Operator Helper Goal (LTG) Pt will present with B hip flexion and knee extension to at least 4+/5 to improve functional strength with transfers and gait. LTG Duration 8 weeks 2 Impairment Imbalance Extractor Operator Helper Goal (LTG) Pt will perform WNLs on Hill Balance or Tinetti Balance testing to decrease fall risk and reflect improved balance. LTG Duration 8 weeks Assessment Summary Assessment Pt is an 83 y/o female with significant medical history including morbid obesity, LE edema, DM, left baez wound from fall in July that is almost healed and remote history of falling. Daughter, Jessy, arrives with pt and will be transporting pt from [facility] for PT. She will be away from December 12 and states PT for pt may need to be on hold at that time d/t that. Pt arrives in w/c and daughter pushes her. Pt and daughter report that pt has a history of back pain and been able to walk with rollator up until her fall in July. Her left knee pain started more recently and she and daughter are adamant that the orthopedic surgeon stated that her left knee joint looks really good for her age and does not have arthritis. However, she was given a lateral knee injection of steroid on the visit. Pt presents with B turniquette compression around shins today with ankles and lower knees not wrapped. Left ankle and knee are more edematous than the right. PT is unsure why pt got an injection if she does not have arthritis in the left knee. Similarly, unexplained reason for such high c/o left knee pain. Doppler was negative. Pt reports chronic history of back pain that is worse in the evening but is not new. Perhaps some swelling and pain are a result of her poor compression dressing today (Tubagrip doubled over and only around portions of the lower leg). Extensive conversation to speak with her wound care team today about proper compression for her wound and LE edema. Compression that ends distal to her left knee may increase swelling and pain in the knee. Pt is not very mobile and so limited assessment of range, strength and mobility today. She will benefit from PT to improve transfers, strength, balance and gait. Having a month gap in PT is not ideal for progression but we will do what we can given transporter availability. Physical Therapy Plan Frequency and Duration Frequency of Treatment 2x/Week Duration of treatment (weeks) 12 Plan of Care Start Date 11/14/23 Plan of Care End Date 02/13/24 Therapeutic Interventions Therapeutic Interventions Balance Training,Canalithic Repositioning,Coordination Training,Gait Training,Home Exercise Program,Joint Mobilizations,Manual Therapy, Neuromuscular Re-education, Patient/Caregiver Education, Self-Care/Home Management, Sensory Integration,Soft Tissue Mobilization,Taping, Therapeutic Activities, Therapeutic Exercises, Vestibular Rehabilitation Modalities Cold Pack/Ice Massage,Electric Stimulation,Hot Packs, Ultrasound Next Visit Focus/Plan Next Note Type Treatment Note Next Visit Plan Consider Hill Balance or Tinetti Balance testing Start NuStep for leg strengthening/range
--- NOTE | 2023-11-21 09:45 | PT.OTN ---
Current Diagnoses Pain in left knee (11/21/23) Pain in left ankle and joints of left foot (11/21/23) Physical Therapy Treatment Note PT-OP-A Visit Information Start: 11/13/23 12:25 Freq: Status: Active Protocol: Document 11/21/23 09:05 MB (Rec: 11/21/23 09:44 MB [id number]) Out-Patient Physical Therapy Visit Information Visit Information Visit Type Treatment Note Visit Note Medicare, 10/01 before KX Daughter is Jessy Visit Start Time 09:05 Visit Stop Time 09:45 Visit Number 2 Number of VICE PRESIDENT OF OPERATIONS Visits 0 Precautions Precautions Fall risk, not walking much, using w/c or 4WRW PT-OP-B Current Condition Start: 11/13/23 12:25 Freq: Status: Active Protocol: Document 11/14/23 09:46 MB (Rec: 11/14/23 10:10 MB [id number]) Current Condition History of Current Condition Onset Date 08/01/23 Current Complaints Left knee pain, progressive weakness and globalized pain History of Current Condition Pt lives in Senior [facility] and on 08/01/23, she had a fall trying to get into the transit bus. Before the injury, she was walking with rollator in housing. After the laceration to left baez, she had stitches and outpatient wound care that finishes today. Pt thinks that the wound is healed. Pt has B tubagrip type dressings from ankles to higher baez that is turniquette in nature. She does not like stockings because they are hot and hard to get on. Daughter is nearby and she and pt state that pt does not have a lot of arm strength. Pt had left knee injection last week by Dr. Ivan. She was told that she has beautiful knees for an 83 year old and that the joints look good. Pt and daughter are adamant that she has never been told that she has arthritis in either knee. PT does not have access to knee x -ray that was done at [facility]. Pt is using w/c. She has had no more falls since July. She is scooting while sitting on rollator in the apartment. Prior Treatments and Tests Wound care LLE and dressings Treatment Goals Patient/Caregiver Goals To be able to walk and go back to the dining room. PT-OP-C Subjective Start: 11/13/23 12:25 Freq: Status: Active Protocol: Document 11/21/23 09:05 MB (Rec: 11/21/23 09:44 MB [id number]) OP-PT Subjective Patient Comments Patient Comments Pt states that since PT mayra, she has been using 4WRW for walking in her apartment. Her daughter got her some tights and between walking and wearing tights, her leg swelling is much better and her son noticed how good her legs look. PT-OP-D Balance Start: 11/13/23 12:25 Freq: Status: Active Protocol: Document 11/14/23 09:46 MB (Rec: 11/14/23 14:40 MB [id number]) Balance Tests Other Other Balance Tests Performed Pt requires CGA and AD for static standing, high risk for falls, imbalance PT-OP-G Mobility & Gait Start: 11/13/23 12:25 Freq: Status: Active Protocol: Document 11/14/23 09:46 MB (Rec: 11/14/23 14:38 MB [id number]) OP Mobility Evaluation Transfers Sit to Stand UE support and pt tends to reach for locked rollator and she requires CGA SPT with CGA and pt taking shuffling steps and flexed posture, evidence of imbalance OP Gait Assessment Comments Gait Comments PT sets up clinic rollator and pt requires CGA and cues for gait 5' forward and 5' backwards. Step-to maisha with left and then right LE and decreased foot clearance B , flexed posture, some more tactile assistance with retropulsion, pt moves slowly and is not very confident with mobility PT-OP-M Strength Start: 11/13/23 12:25 Freq: Status: Active Protocol: Document 11/14/23 09:46 MB (Rec: 11/14/23 14:42 MB [id number]) Hip Strength Hip Manual Muscle Testing Left Flexion (L2) 3+ Fair+ Right Flexion (L2) 3+ Fair+ Knee Strength Knee Manual Muscle Testing Left Flexion (S2) 4+ Good+ Extension (L3) 3 Fair Right Flexion (S2) 4- Good- Extension (L3) 3+ Fair+ Ankle/Foot Strength Ankle and Foot Manual Muscle Testing Left Dorsiflexion (L4) 4+ Good+ Plantarflexion (S1) 5 Normal Right Dorsiflexion (L4) 5 Normal Plantarflexion (S1) 5 Normal PT-OP-Q Treatments Start: 11/13/23 12:25 Freq: Status: Active Protocol: Document 11/21/23 09:05 MB (Rec: 11/21/23 09:44 MB [id number]) Cardio Equipment Recumbent Elliptical (Biodex) Duration (Minutes) 12 Resistance 1-2 Other Moves slowly Therapeutic Exercises Sitting Exercises Hourly exercises for edema and range Comments 20 reps APs, LAQ alternating 20 reps x2, 30 october, clam x10 Therapeutic Activity Therapeutic Activity STS with therapeutic activity Comments Performed several times to work on safety with SPT and STS with rollator with cues for hand placement and CGA today Gait Training Gait Activity With 4WRW Comments Gait in gym with 4WRW with cues for stepping, pt with flexed posture and slow gait, gait up to 35-40' today Manual Therapy Treatment Other Other Manual Treatments Black KT taping left knee with 3 I strips: c below patella and B I strips medial and lateral knee for support PT-OP-T Assessment and Plan Start: 11/13/23 12:25 Freq: Status: Active Protocol: Document 11/21/23 09:05 MB (Rec: 11/21/23 09:44 MB [id number]) Physical Therapy Assessment Rehab Potential Rehabilitation Potential Fair Evaluation Complexity Number of Personal Factors/Comorbidities 3 or More Number of Body Systems Impaired 3 Clinical Presentation at Evaluation Evolving Impairments Impairments Activity Tolerance,Balance, Coordination,Edema,Functional Activities,Functional Mobility ,Gait,Integument,Pain,Posture, ROM,Soft Tissue Mobility, Strength,Transfers,Vestibular Other Concerns Fall Risk High Goals 5 Impairment Lack of HEP Swat Team Member Goal (LTG) Pt will perform HEP with I including gentle flexibility, strengthening, balance and pre -gait exercises to improve functional strength, mobility and balance. LTG Duration 8 weeks 4 Impairment CGA or more assist for transfers Swat Team Member Goal (LTG) Pt will perform STS, SPT and all other basic transfers with mod I using LRAD to improve safety at home. LTG Duration 8 weeks 3 Impairment Weakness Swat Team Member Goal (LTG) Pt will present with B hip flexion and knee extension to at least 4+/5 to improve functional strength with transfers and gait. LTG Duration 8 weeks 2 Impairment Imbalance Senior Care Goal (LTG) Pt will perform WNLs on Hill Balance or Tinetti Balance testing to decrease fall risk and reflect improved balance. LTG Duration 8 weeks Assessment Summary Assessment Great compliance with ed about walking with 4WRW and compression from eval. Initiated exercise and gait today. Pt with recent sedentary lifestyle after injury and so will progress to tolerance. Physical Therapy Plan Frequency and Duration Frequency of Treatment 2x/Week Duration of treatment (weeks) 12 Plan of Care Start Date 11/14/23 Plan of Care End Date 02/13/24 Therapeutic Interventions Therapeutic Interventions Balance Training,Canalithic Repositioning,Coordination Training,Gait Training,Home Exercise Program,Joint Mobilizations,Manual Therapy, Neuromuscular Re-education, Patient/Caregiver Education, Self-Care/Home Management, Sensory Integration,Soft Tissue Mobilization,Taping, Therapeutic Activities, Therapeutic Exercises, Vestibular Rehabilitation Modalities Cold Pack/Ice Massage,Electric Stimulation,Hot Packs, Ultrasound Next Visit Focus/Plan Next Note Type Treatment Note Next Visit Plan Ongoing NuStep, gait with 4WRW and transfer training and then progressive strengthening exercises and balance exercises Consider Hill Balance or Tinetti Balance testing
--- NOTE | 2023-11-26 09:44 | PT.OTN ---
Current Diagnoses Pain in left knee (11/26/23) Pain in left ankle and joints of left foot (11/26/23) Physical Therapy Treatment Note PT-OP-A Visit Information Start: 11/13/23 12:25 Freq: Status: Active Protocol: Document 11/26/23 09:04 SP (Rec: 11/26/23 09:49 SP [id number]) Out-Patient Physical Therapy Visit Information Visit Information Visit Type Treatment Note Visit Note Medicare, 10/29 before KX Daughter is Jessy Visit Start Time 09:04 Visit Stop Time 09:44 Visit Number 3 Number of TIMBER SURVEYOR Visits 1 Evaluation Information Evaluation Date 11/14/23 Precautions Precautions Fall risk, not walking much, using w/c or 4WRW PT-OP-B Current Condition Start: 11/13/23 12:25 Freq: Status: Active Protocol: Document 11/14/23 09:46 MB (Rec: 11/14/23 10:10 MB [id number]) Current Condition History of Current Condition Onset Date 08/01/23 Current Complaints Left knee pain, progressive weakness and globalized pain History of Current Condition Pt lives in [facility] and on 08/01/23, she had a fall trying to get into the transit bus. Before the injury, she was walking with rollator in housing. After the laceration to left baez, she had stitches and outpatient wound care that finishes today. Pt thinks that the wound is healed. Pt has B tubagrip type dressings from ankles to higher baez that is turniquette in nature. She does not like stockings because they are hot and hard to get on. Daughter is nearby and she and pt state that pt does not have a lot of arm strength. Pt had left knee injection last week by Dr. Ivan. She was told that she has beautiful knees for an 83 year old and that the joints look good. Pt and daughter are adamant that she has never been told that she has arthritis in either knee. PT does not have access to knee x -ray that was done at [facility]. Pt is using w/c. She has had no more falls since July. She is scooting while sitting on rollator in the apartment. Prior Treatments and Tests Wound care LLE and dressings Treatment Goals Patient/Caregiver Goals To be able to walk and go back to the dining room. PT-OP-C Subjective Start: 11/13/23 12:25 Freq: Status: Active Protocol: Document 11/26/23 09:04 SP (Rec: 11/26/23 09:49 SP [id number]) OP-PT Subjective Patient Comments Patient Comments Pt reports feels ok after leaves PT. She stated didn't do her exercises hourly as instructed but did them at home. She states can't stand up and walk around for to long . She is able to walk into kitchen make a sandwich then needs to sit on 4WW for rest break before stands and walk back to her seat. She notices gaining strength, not having to sit and push self anymore. although, she stated isn't able to walk to laundry room 2 apartments down approx 80-100 ft nor diningroom 3x that length yet. She stated loosing about 1 lb a week, facility provides her meals in appt. PT-OP-D Balance Start: 11/13/23 12:25 Freq: Status: Active Protocol: Document 11/26/23 09:04 SP (Rec: 11/27/23 08:46 SP [id number]) Tinetti Balance Assessment Sitting Balance Sitting Balance Steady, safe Arising from Chair Ability to Arise Able, uses arms to help Attempts to Arise Arises on 1st attempt Standing Balance Immediate Standing Balance Steady with support Standing Balance Steady, wide stance Nudged Response Staggers, catches self Standing with Eyes Closed Steady Turning Step Pattern Turning 360 Degrees Discontinuous steps Stability Turning 360 Degrees Steady Sitting Down Sitting Down Uses arms or unsteady Gait and Step Initiation of Gait No hesitancy Right Foot Step Length Does not pass stance ft. Right Foot Step Height Does not clear floor Left Foot Step Length Does not pass stance foot Left Foot Step Height Completely clears floor Step Description Step Symmetry Step length not equal Step Continuity Steps appear continuous Gait Description Path Description Mild/moderate deviation Trunk Description Marked sway or uses aide Walking Stance Heels apart Scoring and Interpretation Tinetti Composite Score (points) 14 Interpretation of Scores High risk for falls(< 19) Tinetti Impairment Rating from Composite 20 to <40% Impaired (Score 17- Score 22) PT-OP-G Mobility & Gait Start: 11/13/23 12:25 Freq: Status: Active Protocol: Document 11/14/23 09:46 MB (Rec: 11/14/23 14:38 MB [id number]) OP Mobility Evaluation Transfers Sit to Stand UE support and pt tends to reach for locked rollator and she requires CGA SPT with CGA and pt taking shuffling steps and flexed posture, evidence of imbalance OP Gait Assessment Comments Gait Comments PT sets up clinic rollator and pt requires CGA and cues for gait 5' forward and 5' backwards. Step-to maisha with left and then right LE and decreased foot clearance B , flexed posture, some more tactile assistance with retropulsion, pt moves slowly and is not very confident with mobility PT-OP-M Strength Start: 11/13/23 12:25 Freq: Status: Active Protocol: Document 11/14/23 09:46 MB (Rec: 11/14/23 14:42 MB [id number]) Hip Strength Hip Manual Muscle Testing Left Flexion (L2) 3+ Fair+ Right Flexion (L2) 3+ Fair+ Knee Strength Knee Manual Muscle Testing Left Flexion (S2) 4+ Good+ Extension (L3) 3 Fair Right Flexion (S2) 4- Good- Extension (L3) 3+ Fair+ Ankle/Foot Strength Ankle and Foot Manual Muscle Testing Left Dorsiflexion (L4) 4+ Good+ Plantarflexion (S1) 5 Normal Right Dorsiflexion (L4) 5 Normal Plantarflexion (S1) 5 Normal PT-OP-Q Treatments Start: 11/13/23 12:25 Freq: Status: Active Protocol: Document 11/26/23 09:04 SP (Rec: 11/26/23 09:49 SP [id number]) Cardio Equipment Recumbent Elliptical (Biodex) Duration (Minutes) 12 Resistance 1-2 Seat Position 7 Other Moves slowly: BUE& BLEs cued for 35 SPM if able Therapeutic Exercises Sitting Exercises Hourly exercises for edema and range Comments 20 reps APs, LAQ alternating 20 reps x2, 20 march, clam x10 Therapeutic Activity Therapeutic Activity STS with therapeutic activity Comments Performed several times to work on safety with SPT and STS with rollator with cues for hand placement and CGA today Gait Training Gait Activity With 4WRW Description continue slow pacing and flexed posture /c 4WW Device Used 4WW Distance/Duration 80 ft waiting room to gym and around gym Treatment Focus increase foot clearance, Comments Cues for tall posture, use brake mgt during pivot for safety, marching during pivot. Neuro Re-Education Treatment Balance Activities balance Details WBOS, NBOS, stride stance Equipment //bars Tinetti Details 11/26/23 Comments , see detailed data entered. PT-OP-T Assessment and Plan Start: 11/13/23 12:25 Freq: Status: Active Protocol: Document 11/26/23 09:04 SP (Rec: 11/26/23 09:49 SP [id number]) Physical Therapy Assessment Goals 5 Impairment Lack of HEP Residential Goal (LTG) Pt will perform HEP with I including gentle flexibility, strengthening, balance and pre -gait exercises to improve functional strength, mobility and balance. LTG Duration 8 weeks 4 Impairment CGA or more assist for transfers Residential Goal (LTG) Pt will perform STS, SPT and all other basic transfers with mod I using LRAD to improve safety at home. LTG Duration 8 weeks 3 Impairment Weakness Residential Goal (LTG) Pt will present with B hip flexion and knee extension to at least 4+/5 to improve functional strength with transfers and gait. LTG Duration 8 weeks 2 Impairment Imbalance Diplomatic Officer Goal (LTG) Pt will perform WNLs on Hill Balance or Tinetti Balance testing to decrease fall risk and reflect improved balance. 11/26/23 Tinetti: high fall risk. LTG Duration 8 weeks updated 11/26/23 Assessment Summary Assessment Tx focused on HEP review for carryover home with encouragement to support edema mgt, tires between sets but able to complete 20 reps no adverse affect. Cues for 4WW brake mgt during pivot front chair for safety when BUE WB. Completed TInetti for baseline assessment high fall risk, discussed and pt aware but feels getting better since started PT able to get to kitchen make meal before needs sit on 4WW rest. Physical Therapy Plan Frequency and Duration Frequency of Treatment 2x/Week Duration of treatment (weeks) 12 Plan of Care Start Date 11/14/23 Plan of Care End Date 02/13/24 Therapeutic Interventions Therapeutic Interventions Balance Training,Canalithic Repositioning,Coordination Training,Gait Training,Home Exercise Program,Joint Mobilizations,Manual Therapy, Neuromuscular Re-education, Patient/Caregiver Education, Self-Care/Home Management, Sensory Integration,Soft Tissue Mobilization,Taping, Therapeutic Activities, Therapeutic Exercises, Vestibular Rehabilitation Modalities Cold Pack/Ice Massage,Electric Stimulation,Hot Packs, Ultrasound Next Visit Focus/Plan Next Note Type Treatment Note Next Visit Plan Check doing HEP. Increase standing activity inPT. Ongoing NuStep, gait with 4WRW and transfer training and then progressive strengthening exercises and balance exercises Consider Hill Balance or Tinetti Balance testing
--- NOTE | 2023-11-28 12:14 | PT.OTN ---
Current Diagnoses Pain in left knee (11/28/23) Pain in left ankle and joints of left foot (11/28/23) Physical Therapy Treatment Note PT-OP-A Visit Information Start: 11/13/23 12:25 Freq: Status: Active Protocol: Document 11/28/23 11:15 MB (Rec: 11/28/23 12:14 MB [id number]) Out-Patient Physical Therapy Visit Information Visit Information Visit Type Treatment Note Visit Note Medicare, 11/29 before KX Daughter is Jessy Visit Start Time 11:15 Visit Stop Time 11:55 Visit Number 4 Number of SENIOR CORPORATE RECRUITER Visits 0 Precautions Precautions Fall risk, improving with 4WRW PT-OP-B Current Condition Start: 11/13/23 12:25 Freq: Status: Active Protocol: Document 11/14/23 09:46 MB (Rec: 11/14/23 10:10 MB [id number]) Current Condition History of Current Condition Onset Date 08/01/23 Current Complaints Left knee pain, progressive weakness and globalized pain History of Current Condition Pt lives in Senior Housing and on 08/01/23, she had a fall trying to get into the transit bus. Before the injury, she was walking with rollator in housing. After the laceration to left baez, she had stitches and outpatient wound care that finishes today. Pt thinks that the wound is healed. Pt has B tubagrip type dressings from ankles to higher baez that is turniquette in nature. She does not like stockings because they are hot and hard to get on. Daughter is nearby and she and pt state that pt does not have a lot of arm strength. Pt had left knee injection last week by Dr. Ivan. She was told that she has beautiful knees for an 83 year old and that the joints look good. Pt and daughter are adamant that she has never been told that she has arthritis in either knee. PT does not have access to knee x -ray that was done at [facility]. Pt is using w/c. She has had no more falls since July. She is scooting while sitting on rollator in the apartment. Prior Treatments and Tests Wound care LLE and dressings Treatment Goals Patient/Caregiver Goals To be able to walk and go back to the dining room. PT-OP-C Subjective Start: 11/13/23 12:25 Freq: Status: Active Protocol: Document 11/28/23 11:15 MB (Rec: 11/28/23 12:14 MB [id number]) OP-PT Subjective Patient Comments Patient Comments Pt con't to go to the wound care clinic once a week. Her left knee pain is no better and she con't worse pain in the morning. She is waiting to hear from her daughter if the doctor called to get her left knee MRI ordered or not. She is trying chair exercises every hour and she is showing her friends. She came to the clinic with 4WRW today. She is icing her right knee. PT-OP-D Balance Start: 11/13/23 12:25 Freq: Status: Active Protocol: Document 11/26/23 09:04 SP (Rec: 11/27/23 08:46 SP [id number]) Tinetti Balance Assessment Sitting Balance Sitting Balance Steady, safe Arising from Chair Ability to Arise Able, uses arms to help Attempts to Arise Arises on 1st attempt Standing Balance Immediate Standing Balance Steady with support Standing Balance Steady, wide stance Nudged Response Staggers, catches self Standing with Eyes Closed Steady Turning Step Pattern Turning 360 Degrees Discontinuous steps Stability Turning 360 Degrees Steady Sitting Down Sitting Down Uses arms or unsteady Gait and Step Initiation of Gait No hesitancy Right Foot Step Length Does not pass stance ft. Right Foot Step Height Does not clear floor Left Foot Step Length Does not pass stance foot Left Foot Step Height Completely clears floor Step Description Step Symmetry Step length not equal Step Continuity Steps appear continuous Gait Description Path Description Mild/moderate deviation Trunk Description Marked sway or uses aide Walking Stance Heels apart Scoring and Interpretation Tinetti Composite Score (points) 14 Interpretation of Scores High risk for falls(< 19) Tinetti Impairment Rating from Composite 20 to <40% Impaired (Score 17- Score 22) PT-OP-G Mobility & Gait Start: 11/13/23 12:25 Freq: Status: Active Protocol: Document 11/14/23 09:46 MB (Rec: 11/14/23 14:38 MB [id number]) OP Mobility Evaluation Transfers Sit to Stand UE support and pt tends to reach for locked rollator and she requires CGA SPT with CGA and pt taking shuffling steps and flexed posture, evidence of imbalance OP Gait Assessment Comments Gait Comments PT sets up clinic rollator and pt requires CGA and cues for gait 5' forward and 5' backwards. Step-to maisha with left and then right LE and decreased foot clearance B , flexed posture, some more tactile assistance with retropulsion, pt moves slowly and is not very confident with mobility PT-OP-M Strength Start: 11/13/23 12:25 Freq: Status: Active Protocol: Document 11/14/23 09:46 MB (Rec: 11/14/23 14:42 MB [id number]) Hip Strength Hip Manual Muscle Testing Left Flexion (L2) 3+ Fair+ Right Flexion (L2) 3+ Fair+ Knee Strength Knee Manual Muscle Testing Left Flexion (S2) 4+ Good+ Extension (L3) 3 Fair Right Flexion (S2) 4- Good- Extension (L3) 3+ Fair+ Ankle/Foot Strength Ankle and Foot Manual Muscle Testing Left Dorsiflexion (L4) 4+ Good+ Plantarflexion (S1) 5 Normal Right Dorsiflexion (L4) 5 Normal Plantarflexion (S1) 5 Normal PT-OP-Q Treatments Start: 11/13/23 12:25 Freq: Status: Active Protocol: Document 11/28/23 11:15 MB (Rec: 11/28/23 12:14 MB [id number]) Cardio Equipment Recumbent Elliptical (BiodMamboCar) Duration (Minutes) 11 Resistance 1-2 Other Slow movement Therapeutic Exercises Sitting Exercises Hourly exercises for edema and range Sitting Exercise Name No break today Comments 20 reps APs, LAQ alternating 20 reps x2, 20 october, clam x10 Therapeutic Activity Therapeutic Activity STS with therapeutic activity Comments Performed several STS transfers today from the 4WRW to chair and back and occ cues for hand placement, ongoing CGA Gait Training Gait Activity With 4WRW Comments Pt is able to gait train from waiting area to gym with 4WRW and CGA, slower gait and antalgic pattern with left and then right LE. Multiple gait trials today and distance up to 80-100'. Neuro Re-Education Treatment Balance Activities balance Equipment // bars Comments Forward walking and then backwards walking with rollator, cues for big steps and then to lock walker and reach for chair before sitting ; performed 4 more reps before rest break, CGA and better big stepping, 5 more reps and pt does better with large steps forward and backwards, tired with activity. Side stepping facing // bar 5 reps without rest and CGA, pt DONAHUE with all activity PT-OP-T Assessment and Plan Start: 11/13/23 12:25 Freq: Status: Active Protocol: Document 11/28/23 11:15 MB (Rec: 11/28/23 12:14 MB [id number]) Physical Therapy Assessment Rehab Potential Rehabilitation Potential Fair Evaluation Complexity Number of Personal Factors/Comorbidities 3 or More Number of Body Systems Impaired 3 Clinical Presentation at Evaluation Evolving Impairments Impairments Activity Tolerance,Balance, Coordination,Edema,Functional Activities,Functional Mobility ,Gait,Integument,Pain,Posture, ROM,Soft Tissue Mobility, Strength,Transfers,Vestibular Other Concerns Fall Risk High Goals 5 Impairment Lack of HEP Dukey Rider Goal (LTG) Pt will perform HEP with I including gentle flexibility, strengthening, balance and pre -gait exercises to improve functional strength, mobility and balance. LTG Duration 8 weeks 4 Impairment CGA or more assist for transfers Care Home Goal (LTG) Pt will perform STS, SPT and all other basic transfers with mod I using LRAD to improve safety at home. LTG Duration 8 weeks 3 Impairment Weakness Care Home Goal (LTG) Pt will present with B hip flexion and knee extension to at least 4+/5 to improve functional strength with transfers and gait. LTG Duration 8 weeks 2 Impairment Imbalance Care Home Goal (LTG) Pt will perform WNLs on Hill Balance or Tinetti Balance testing to decrease fall risk and reflect improved balance. LTG Duration 8 weeks Assessment Summary Assessment Overall, pt is moving more since PT evaluation. Today is the first time she has left for an appointment with her 4WRW and not a w/c and her daughter dropped her off. DONAHUE with gait activities d/t poor endurance and emphysema and she is improving slowly with PT. Physical Therapy Plan Frequency and Duration Frequency of Treatment 2x/Week Duration of treatment (weeks) 12 Plan of Care Start Date 11/14/23 Plan of Care End Date 02/13/24 Therapeutic Interventions Therapeutic Interventions Balance Training,Canalithic Repositioning,Coordination Training,Gait Training,Home Exercise Program,Joint Mobilizations,Manual Therapy, Neuromuscular Re-education, Patient/Caregiver Education, Self-Care/Home Management, Sensory Integration,Soft Tissue Mobilization,Taping, Therapeutic Activities, Therapeutic Exercises, Vestibular Rehabilitation Modalities Cold Pack/Ice Massage,Electric Stimulation,Hot Packs, Ultrasound Next Visit Focus/Plan Next Note Type Treatment Note Next Visit Plan Consider sitting LE strengthening with band: ankle DF and eversion with band around ball of feet, LAQ with band around thighs (watch for discomfort around thighs), clam with band in same position and consider marching with it as well. Ongoing NuStep, gait with 4WRW and transfer training and then progressive strengthening exercises and balance exercises
--- NOTE | 2023-12-05 10:34 | PT.OTN ---
Current Diagnoses Pain in left knee (12/05/23) Pain in left ankle and joints of left foot (12/05/23) Physical Therapy Treatment Note PT-OP-A Visit Information Start: 11/13/23 12:25 Freq: Status: Active Protocol: Document 12/05/23 09:42 MB (Rec: 12/05/23 10:33 MB [id number]) Out-Patient Physical Therapy Visit Information Visit Information Visit Type Treatment Note Visit Note Medicare, 12/29 before KX Daughter is Jessy Visit Start Time 09:42 Visit Stop Time 10:22 Visit Number 5 Number of PRINTING PRESS OPERATOR Visits 0 Precautions Precautions Fall risk, improving with 4WRW PT-OP-B Current Condition Start: 11/13/23 12:25 Freq: Status: Active Protocol: Document 11/14/23 09:46 MB (Rec: 11/14/23 10:10 MB [id number]) Current Condition History of Current Condition Onset Date 08/01/23 Current Complaints Left knee pain, progressive weakness and globalized pain History of Current Condition Pt lives in Senior [facility] and on 08/01/23, she had a fall trying to get into the transit bus. Before the injury, she was walking with rollator in housing. After the laceration to left baez, she had stitches and outpatient wound care that finishes today. Pt thinks that the wound is healed. Pt has B tubagrip type dressings from ankles to higher baez that is turniquette in nature. She does not like stockings because they are hot and hard to get on. Daughter is nearby and she and pt state that pt does not have a lot of arm strength. Pt had left knee injection last week by Dr. Ivan. She was told that she has beautiful knees for an 83 year old and that the joints look good. Pt and daughter are adamant that she has never been told that she has arthritis in either knee. PT does not have access to knee x -ray that was done at [facility]. Pt is using w/c. She has had no more falls since July. She is scooting while sitting on rollator in the apartment. Prior Treatments and Tests Wound care LLE and dressings Treatment Goals Patient/Caregiver Goals To be able to walk and go back to the dining room. PT-OP-C Subjective Start: 11/13/23 12:25 Freq: Status: Active Protocol: Document 12/05/23 09:42 MB (Rec: 12/05/23 10:33 MB [id number]) OP-PT Subjective Patient Comments Patient Comments Pt reports that her left knee pain con't to be bad. She managed to take her garbage out via her walker and do her laudry via her walker. She walked to the dining room four times using the rollator. It is such a relief for pt to be able to take a shower. Pt's left knee MRI is scheduled for 01/16/24. PT-OP-D Balance Start: 11/13/23 12:25 Freq: Status: Active Protocol: Document 11/26/23 09:04 SP (Rec: 11/27/23 08:46 SP [id number]) Tinetti Balance Assessment Sitting Balance Sitting Balance Steady, safe Arising from Chair Ability to Arise Able, uses arms to help Attempts to Arise Arises on 1st attempt Standing Balance Immediate Standing Balance Steady with support Standing Balance Steady, wide stance Nudged Response Staggers, catches self Standing with Eyes Closed Steady Turning Step Pattern Turning 360 Degrees Discontinuous steps Stability Turning 360 Degrees Steady Sitting Down Sitting Down Uses arms or unsteady Gait and Step Initiation of Gait No hesitancy Right Foot Step Length Does not pass stance ft. Right Foot Step Height Does not clear floor Left Foot Step Length Does not pass stance foot Left Foot Step Height Completely clears floor Step Description Step Symmetry Step length not equal Step Continuity Steps appear continuous Gait Description Path Description Mild/moderate deviation Trunk Description Marked sway or uses aide Walking Stance Heels apart Scoring and Interpretation Tinetti Composite Score (points) 14 Interpretation of Scores High risk for falls(< 19) Tinetti Impairment Rating from Composite 20 to <40% Impaired (Score 17- Score 22) PT-OP-G Mobility & Gait Start: 11/13/23 12:25 Freq: Status: Active Protocol: Document 11/14/23 09:46 MB (Rec: 11/14/23 14:38 MB [id number]) OP Mobility Evaluation Transfers Sit to Stand UE support and pt tends to reach for locked rollator and she requires CGA SPT with CGA and pt taking shuffling steps and flexed posture, evidence of imbalance OP Gait Assessment Comments Gait Comments PT sets up clinic rollator and pt requires CGA and cues for gait 5' forward and 5' backwards. Step-to maisha with left and then right LE and decreased foot clearance B , flexed posture, some more tactile assistance with retropulsion, pt moves slowly and is not very confident with mobility PT-OP-M Strength Start: 11/13/23 12:25 Freq: Status: Active Protocol: Document 11/14/23 09:46 MB (Rec: 11/14/23 14:42 MB [id number]) Hip Strength Hip Manual Muscle Testing Left Flexion (L2) 3+ Fair+ Right Flexion (L2) 3+ Fair+ Knee Strength Knee Manual Muscle Testing Left Flexion (S2) 4+ Good+ Extension (L3) 3 Fair Right Flexion (S2) 4- Good- Extension (L3) 3+ Fair+ Ankle/Foot Strength Ankle and Foot Manual Muscle Testing Left Dorsiflexion (L4) 4+ Good+ Plantarflexion (S1) 5 Normal Right Dorsiflexion (L4) 5 Normal Plantarflexion (S1) 5 Normal PT-OP-Q Treatments Start: 11/13/23 12:25 Freq: Status: Active Protocol: Document 12/05/23 09:42 MB (Rec: 12/05/23 10:33 MB [id number]) Cardio Equipment Recumbent Elliptical (Ubersnap) Duration (Minutes) 10 Resistance 1-2 Other DONAHUE with gait Therapeutic Exercises Sitting Exercises Marching Resistance Ankle weights 2lb Reps/Minutes 20 alternating reps x2 LAQ with ankle weights Resistance Ankle weights 2 lb Reps/Minutes 20 alternating reps x2 APs with ankle weights Sitting Exercise Name APs and PF Resistance Ankle weights 2 lb Reps/Minutes 20 reps x2 Hourly exercises for edema and range Comments October clam x10 today, glute squeeze first Standing Exercises Hip abduction Resistance Ankle weights 2 lb Reps/Minutes 20 alternating reps x2 Hamstring curl Resistance Ankle weights 2 lb Reps/Minutes 20 alternating reps x2 Therapeutic Activity Therapeutic Activity STS with therapeutic activity Comments Several STS transfers throughout treatment and pt is doing better with hand placements and requires superv to CGA Gait Training Gait Activity With 4WRW Comments Pt with more DONAHUE today and is able to gait train from waiting area to gym with 4WRW and CGA, slower gait and antalgic pattern with left and then right LE. Multiple gait trials today and distance up to 80-100'. PT-OP-T Assessment and Plan Start: 11/13/23 12:25 Freq: Status: Active Protocol: Document 12/05/23 09:42 MB (Rec: 12/05/23 10:33 MB [id number]) Physical Therapy Assessment Rehab Potential Rehabilitation Potential Fair Evaluation Complexity Number of Personal Factors/Comorbidities 3 or More Number of Body Systems Impaired 3 Clinical Presentation at Evaluation Evolving Impairments Impairments Activity Tolerance,Balance, Coordination,Edema,Functional Activities,Functional Mobility ,Gait,Integument,Pain,Posture, ROM,Soft Tissue Mobility, Strength,Transfers,Vestibular Other Concerns Fall Risk High Goals 5 Impairment Lack of HEP Residential Goal (LTG) Pt will perform HEP with I including gentle flexibility, strengthening, balance and pre -gait exercises to improve functional strength, mobility and balance. LTG Duration 8 weeks 4 Impairment CGA or more assist for transfers Soloist Dancer Goal (LTG) Pt will perform STS, SPT and all other basic transfers with mod I using LRAD to improve safety at home. LTG Duration 8 weeks 3 Impairment Weakness Soloist Dancer Goal (LTG) Pt will present with B hip flexion and knee extension to at least 4+/5 to improve functional strength with transfers and gait. LTG Duration 8 weeks 2 Impairment Imbalance Residential Goal (LTG) Pt will perform WNLs on Hill Balance or Tinetti Balance testing to decrease fall risk and reflect improved balance. LTG Duration 8 weeks Assessment Summary Assessment Pt has more DONAHUE today with gait and ongoing reports of left knee pain. Added ankle weights to LE sitting exercises today for gentle strengthening. Pt's left knee does look bigger than her right one. Physical Therapy Plan Frequency and Duration Frequency of Treatment 2x/Week Duration of treatment (weeks) 12 Plan of Care Start Date 11/14/23 Plan of Care End Date 02/13/24 Therapeutic Interventions Therapeutic Interventions Balance Training,Canalithic Repositioning,Coordination Training,Gait Training,Home Exercise Program,Joint Mobilizations,Manual Therapy, Neuromuscular Re-education, Patient/Caregiver Education, Self-Care/Home Management, Sensory Integration,Soft Tissue Mobilization,Taping, Therapeutic Activities, Therapeutic Exercises, Vestibular Rehabilitation Modalities Cold Pack/Ice Massage,Electric Stimulation,Hot Packs, Ultrasound Next Visit Focus/Plan Next Note Type Treatment Note Next Visit Plan Assess how pt did with ankle weight exercises and consider adding for home. Consider sitting hamstring and sitting or standing calf stretches. Ongoing NuStep, gait with 4WRW and transfer training and then progressive strengthening exercises and balance exercises
--- NOTE | 2023-12-13 11:15 | PT.OTN ---
Current Diagnoses Pain in left knee (12/13/23) Pain in left ankle and joints of left foot (12/13/23) Physical Therapy Treatment Note PT-OP-A Visit Information Start: 11/13/23 12:25 Freq: Status: Active Protocol: Document 12/13/23 10:37 SP (Rec: 12/13/23 11:20 SP [id number]) Out-Patient Physical Therapy Visit Information Visit Information Visit Type Treatment Note Visit Note Medicare, 01/29 before KX Daughter is Jessy, observed end tx- going out of town til end December. Visit Start Time 10:37 Visit Stop Time 11:15 Visit Number 6 Number of WIND TURBINE ENGINEER Visits 1 Evaluation Information Evaluation Date 11/14/23 Precautions Precautions Fall risk, improving with 4WRW PT-OP-B Current Condition Start: 11/13/23 12:25 Freq: Status: Active Protocol: Document 11/14/23 09:46 MB (Rec: 11/14/23 10:10 MB [id number]) Current Condition History of Current Condition Onset Date 08/01/23 Current Complaints Left knee pain, progressive weakness and globalized pain History of Current Condition Pt lives in Senior Housing and on 08/01/23, she had a fall trying to get into the transit bus. Before the injury, she was walking with rollator in housing. After the laceration to left baez, she had stitches and outpatient wound care that finishes today. Pt thinks that the wound is healed. Pt has B tubagrip type dressings from ankles to higher baez that is turniquette in nature. She does not like stockings because they are hot and hard to get on. Daughter is nearby and she and pt state that pt does not have a lot of arm strength. Pt had left knee injection last week by Dr. Ivan. She was told that she has beautiful knees for an 83 year old and that the joints look good. Pt and daughter are adamant that she has never been told that she has arthritis in either knee. PT does not have access to knee x -ray that was done at [facility]. Pt is using w/c. She has had no more falls since July. She is scooting while sitting on rollator in the apartment. Prior Treatments and Tests Wound care LLE and dressings Treatment Goals Patient/Caregiver Goals To be able to walk and go back to the dining room. PT-OP-C Subjective Start: 11/13/23 12:25 Freq: Status: Active Protocol: Document 12/13/23 10:37 SP (Rec: 12/13/23 11:20 SP [id number]) OP-PT Subjective Patient Comments Patient Comments Pt reports finally done with woundcare and please with results. She is on water pill 2 in am and 1 pm to support edema mgt, lost 3 lbs and feeling better with mobility and pain reduction. She is now doing her laundry 2-3 doors down and walking to diningroom approx [address] past 2 weeks using 4WW. She does find herself walking around small apartment to kitchen/ bathroom without AD but does contact wall/furniture for support needed when realized, feeling more confident. She reports responded well with no ill affects with added weights last tx. She states does exercises when thinks about it. She states her daughter has leg wts she can use and will bring in, has 1 lb bags to adjust wt. She said her daughter is going OOT doesn't have a ride and will return at next scheduled appt end December, will continue on own while not here with ex & wts and and return to walking hallways in facility /c 4WW. Still have knee pain, MRI January 15, still initial WB into LE not as good as wants. Patient Reported Progress Improving PT-OP-D Balance Start: 11/13/23 12:25 Freq: Status: Active Protocol: Document 11/26/23 09:04 SP (Rec: 11/27/23 08:46 SP [id number]) Tinetti Balance Assessment Sitting Balance Sitting Balance Steady, safe Arising from Chair Ability to Arise Able, uses arms to help Attempts to Arise Arises on 1st attempt Standing Balance Immediate Standing Balance Steady with support Standing Balance Steady, wide stance Nudged Response Staggers, catches self Standing with Eyes Closed Steady Turning Step Pattern Turning 360 Degrees Discontinuous steps Stability Turning 360 Degrees Steady Sitting Down Sitting Down Uses arms or unsteady Gait and Step Initiation of Gait No hesitancy Right Foot Step Length Does not pass stance ft. Right Foot Step Height Does not clear floor Left Foot Step Length Does not pass stance foot Left Foot Step Height Completely clears floor Step Description Step Symmetry Step length not equal Step Continuity Steps appear continuous Gait Description Path Description Mild/moderate deviation Trunk Description Marked sway or uses aide Walking Stance Heels apart Scoring and Interpretation Tinetti Composite Score (points) 14 Interpretation of Scores High risk for falls(< 19) Tinetti Impairment Rating from Composite 20 to <40% Impaired (Score 17- Score 22) PT-OP-G Mobility & Gait Start: 11/13/23 12:25 Freq: Status: Active Protocol: Document 11/14/23 09:46 MB (Rec: 11/14/23 14:38 MB [id number]) OP Mobility Evaluation Transfers Sit to Stand UE support and pt tends to reach for locked rollator and she requires CGA SPT with CGA and pt taking shuffling steps and flexed posture, evidence of imbalance OP Gait Assessment Comments Gait Comments PT sets up clinic rollator and pt requires CGA and cues for gait 5' forward and 5' backwards. Step-to maisha with left and then right LE and decreased foot clearance B , flexed posture, some more tactile assistance with retropulsion, pt moves slowly and is not very confident with mobility PT-OP-M Strength Start: 11/13/23 12:25 Freq: Status: Active Protocol: Document 11/14/23 09:46 MB (Rec: 11/14/23 14:42 MB [id number]) Hip Strength Hip Manual Muscle Testing Left Flexion (L2) 3+ Fair+ Right Flexion (L2) 3+ Fair+ Knee Strength Knee Manual Muscle Testing Left Flexion (S2) 4+ Good+ Extension (L3) 3 Fair Right Flexion (S2) 4- Good- Extension (L3) 3+ Fair+ Ankle/Foot Strength Ankle and Foot Manual Muscle Testing Left Dorsiflexion (L4) 4+ Good+ Plantarflexion (S1) 5 Normal Right Dorsiflexion (L4) 5 Normal Plantarflexion (S1) 5 Normal PT-OP-Q Treatments Start: 11/13/23 12:25 Freq: Status: Active Protocol: Document 12/13/23 10:37 SP (Rec: 12/13/23 11:20 SP [id number]) Cardio Equipment Recumbent Stepper (Sci-Fit) Duration (Minutes) 13 Resistance 2 Seat Position 9- 42 rpms Other good DF/knee/hip ROM with reported pleased doesn't hurt today. Therapeutic Exercises Sitting Exercises LAQ with ankle weights Resistance Ankle weights 2> 3 lb Reps/Minutes 20 alternating reps x2 Comments good form Standing Exercises Hip abduction Resistance Ankle weights 2>3 lb Reps/Minutes 20 alternating reps x2 Comments cued tall posturing Hamstring curl Resistance Ankle weights 2 lb Reps/Minutes 20 alternating reps x2 Therapeutic Activity Therapeutic Activity STS with therapeutic activity Reps/Minutes 2 Comments Good demo transfers /c 4WW today PT-OP-T Assessment and Plan Start: 11/13/23 12:25 Freq: Status: Active Protocol: Document 12/13/23 10:37 SP (Rec: 12/13/23 11:20 SP [id number]) Physical Therapy Assessment Goals 5 Impairment Lack of HEP Sausage Cooker Goal (LTG) Pt will perform HEP with I including gentle flexibility, strengthening, balance and pre -gait exercises to improve functional strength, mobility and balance. LTG Duration 8 weeks 4 Impairment CGA or more assist for transfers Halfway Goal (LTG) Pt will perform STS, SPT and all other basic transfers with mod I using LRAD to improve safety at home. LTG Duration 8 weeks 3 Impairment Weakness Halfway Goal (LTG) Pt will present with B hip flexion and knee extension to at least 4+/5 to improve functional strength with transfers and gait. LTG Duration 8 weeks 2 Impairment Imbalance Halfway Goal (LTG) Pt will perform WNLs on Ihll Balance or Tinetti Balance testing to decrease fall risk and reflect improved balance. LTG Duration 8 weeks Assessment Summary Assessment Pt responded well to ther ex and increase to 3 pounds (2 lbs home, daughter providing her) today no adverse affects with alternating LEs, provided HOs of standing wt exercises to look at at home. Suggested increasing walking inside hallways before using sidewalk paths around complex when daughter gets home, always have phone on her for safety. She verbalized understanding and in agreement. Will check goals and balance progress making next tx and doing on own while daughter gone to see if ready for DC PT. Physical Therapy Plan Frequency and Duration Frequency of Treatment 2x/Week Duration of treatment (weeks) 12 Plan of Care Start Date 11/14/23 Plan of Care End Date 02/13/24 Therapeutic Interventions Therapeutic Interventions Balance Training,Canalithic Repositioning,Coordination Training,Gait Training,Home Exercise Program,Joint Mobilizations,Manual Therapy, Neuromuscular Re-education, Patient/Caregiver Education, Self-Care/Home Management, Sensory Integration,Soft Tissue Mobilization,Taping, Therapeutic Activities, Therapeutic Exercises, Vestibular Rehabilitation Modalities Cold Pack/Ice Massage,Electric Stimulation,Hot Packs, Ultrasound Next Visit Focus/Plan Next Note Type Treatment Note Next Visit Plan Assess self HEP /c leg wts home while daughter out of town, walking hallway progresion distance. POC PT: Consider sitting hamstring and sitting or standing calf stretches. Ongoing NuStep, gait with 4WRW and transfer training and then progressive strengthening exercises and balance exercises
--- NOTE | 2023-12-24 09:23 | PT-OP ANOTE ---
PT checking in on pt chart. Pt has not been into PT for over a week d/t her daughter is on vacation. PT will resume when daughter returns and can transport pt to PT at the end of the month. Will initiate progress note on 01/08/24.
--- NOTE | 2024-01-01 07:53 | PT-OP ANOTE ---
Called pt to check in to see how she is feeling while she has been away from PT. Pt unavailable and PT left message and reminded pt of appointment on 01/07.
--- NOTE | 2024-01-08 11:32 | PT.OTN ---
Current Diagnoses Pain in left knee (01/08/24) Pain in left ankle and joints of left foot (01/08/24) Physical Therapy Treatment Note PT-OP-A Visit Information Start: 11/13/23 12:25 Freq: Status: Active Protocol: Document 01/08/24 10:35 MB (Rec: 01/08/24 11:32 MB [id number]) Out-Patient Physical Therapy Visit Information Visit Information Visit Type Treatment Note Visit Note Medicare, 02/28 before KX Visit Start Time 10:35 Visit Stop Time 11:15 Visit Number 7 Number of CORPORATE LIBRARIAN Visits 0 Evaluation Information Evaluation Date 11/14/23 Precautions Precautions Fall risk PT-OP-B Current Condition Start: 11/13/23 12:25 Freq: Status: Active Protocol: Document 11/14/23 09:46 MB (Rec: 11/14/23 10:10 MB [id number]) Current Condition History of Current Condition Onset Date 08/01/23 Current Complaints Left knee pain, progressive weakness and globalized pain History of Current Condition Pt lives in Senior Housing and on 08/01/23, she had a fall trying to get into the transit bus. Before the injury, she was walking with rollator in housing. After the laceration to left baez, she had stitches and outpatient wound care that finishes today. Pt thinks that the wound is healed. Pt has B tubagrip type dressings from ankles to higher baez that is turniquette in nature. She does not like stockings because they are hot and hard to get on. Daughter is nearby and she and pt state that pt does not have a lot of arm strength. Pt had left knee injection last week by Dr. Ivan. She was told that she has beautiful knees for an 83 year old and that the joints look good. Pt and daughter are adamant that she has never been told that she has arthritis in either knee. PT does not have access to knee x -ray that was done at [facility]. Pt is using w/c. She has had no more falls since July. She is scooting while sitting on rollator in the apartment. Prior Treatments and Tests Wound care LLE and dressings Treatment Goals Patient/Caregiver Goals To be able to walk and go back to the dining room. PT-OP-C Subjective Start: 11/13/23 12:25 Freq: Status: Active Protocol: Document 01/08/24 10:35 MB (Rec: 01/08/24 11:32 MB [id number]) OP-PT Subjective Patient Comments Patient Comments Overall, pt is doing great. She is walking more including outside with her walker. Pt would like to d/c today. She is walkig to dinner and she is walking a quarter of a mile everyday. Her left knee is sore. She has a MRI next Sunday. PT-OP-D Balance Start: 11/13/23 12:25 Freq: Status: Active Protocol: Document 11/26/23 09:04 SP (Rec: 11/27/23 08:46 SP [id number]) Tinetti Balance Assessment Sitting Balance Sitting Balance Steady, safe Arising from Chair Ability to Arise Able, uses arms to help Attempts to Arise Arises on 1st attempt Standing Balance Immediate Standing Balance Steady with support Standing Balance Steady, wide stance Nudged Response Staggers, catches self Standing with Eyes Closed Steady Turning Step Pattern Turning 360 Degrees Discontinuous steps Stability Turning 360 Degrees Steady Sitting Down Sitting Down Uses arms or unsteady Gait and Step Initiation of Gait No hesitancy Right Foot Step Length Does not pass stance ft. Right Foot Step Height Does not clear floor Left Foot Step Length Does not pass stance foot Left Foot Step Height Completely clears floor Step Description Step Symmetry Step length not equal Step Continuity Steps appear continuous Gait Description Path Description Mild/moderate deviation Trunk Description Marked sway or uses aide Walking Stance Heels apart Scoring and Interpretation Tinetti Composite Score (points) 14 Interpretation of Scores High risk for falls(< 19) Tinetti Impairment Rating from Composite 20 to <40% Impaired (Score 17- Score 22) PT-OP-G Mobility & Gait Start: 11/13/23 12:25 Freq: Status: Active Protocol: Document 11/14/23 09:46 MB (Rec: 11/14/23 14:38 MB [id number]) OP Mobility Evaluation Transfers Sit to Stand UE support and pt tends to reach for locked rollator and she requires CGA SPT with CGA and pt taking shuffling steps and flexed posture, evidence of imbalance OP Gait Assessment Comments Gait Comments PT sets up clinic rollator and pt requires CGA and cues for gait 5' forward and 5' backwards. Step-to maisha with left and then right LE and decreased foot clearance B , flexed posture, some more tactile assistance with retropulsion, pt moves slowly and is not very confident with mobility PT-OP-M Strength Start: 11/13/23 12:25 Freq: Status: Active Protocol: Document 11/14/23 09:46 MB (Rec: 11/14/23 14:42 MB [id number]) Hip Strength Hip Manual Muscle Testing Left Flexion (L2) 3+ Fair+ Right Flexion (L2) 3+ Fair+ Knee Strength Knee Manual Muscle Testing Left Flexion (S2) 4+ Good+ Extension (L3) 3 Fair Right Flexion (S2) 4- Good- Extension (L3) 3+ Fair+ Ankle/Foot Strength Ankle and Foot Manual Muscle Testing Left Dorsiflexion (L4) 4+ Good+ Plantarflexion (S1) 5 Normal Right Dorsiflexion (L4) 5 Normal Plantarflexion (S1) 5 Normal PT-OP-Q Treatments Start: 11/13/23 12:25 Freq: Status: Active Protocol: Document 01/08/24 10:35 MB (Rec: 01/08/24 11:32 MB [id number]) Cardio Equipment Recumbent Elliptical (Turing Data) Duration (Minutes) 11 Resistance 1 Other DONAHUE with activity Therapeutic Exercises Other Exercises MMT LEs in sitting Comments See findings under goals, hip flexion and knee flexion and ext, improved Verbally reviewed exercises in preparation for d/c Comments HEP review today and pt to perform at d/c Gait Training Gait Activity With 4WRW Comments Pt does better with walker with rollator today and she does have DONAHUE with all activity Neuro Re-Education Treatment Balance Activities balance Comments See balance findings below Tinetti Comments Pt uses rollator for gait. for gait score. Balance section: 06/28. Total score is 18/28, indicating increased risk for falling PT-OP-T Assessment and Plan Start: 11/13/23 12:25 Freq: Status: Active Protocol: Document 01/08/24 10:35 MB (Rec: 01/08/24 11:32 MB [id number]) Physical Therapy Assessment Rehab Potential Rehabilitation Potential Fair Evaluation Complexity Number of Personal Factors/Comorbidities 3 or More Number of Body Systems Impaired 3 Clinical Presentation at Evaluation Evolving Impairments Impairments Activity Tolerance,Balance, Coordination,Edema,Functional Activities,Functional Mobility ,Gait,Integument,Pain,Posture, ROM,Soft Tissue Mobility, Strength,Transfers,Vestibular Other Concerns Fall Risk High Goals 5 Impairment Lack of HEP Chcf Goal (LTG) Pt will perform HEP with I including gentle flexibility, strengthening, balance and pre -gait exercises to improve functional strength, mobility and balance. 01/08/24: Pt is performing leg exercises and walking at home LTG Duration Met 4 Impairment CGA or more assist for transfers Geophysical Manager Goal (LTG) Pt will perform STS, SPT and all other basic transfers with mod I using LRAD to improve safety at home. 01/08/24: Pt is performing all transfers with mod I with LRAD LTG Duration Met 3 Impairment Weakness Chcf Goal (LTG) Pt will present with B hip flexion and knee extension to at least 4+/5 to improve functional strength with transfers and gait. 01/08/24: MMT hip flexion: B 4+ /5; knee flexion: B 4+/5; knee extension: B 4+/5 LTG Duration Met 2 Impairment Imbalance Geophysical Manager Goal (LTG) Pt will perform WNLs on Hill Balance or Tinetti Balance testing to decrease fall risk and reflect improved balance. 01/08/24: Tinetti score is 18/ 28, indicating high risk for falling LTG Duration Not met Assessment Summary Assessment Pt is back to walking inside and outside at home with rollator and she is walking to the dining room for meals. She is doing her LE exercises. Her left leg wound is totally healed. She con't with DONAHUE. She is having left knee MRI next week and follow-up with orthopedist afterwards. She would like to d/c PT today. Pt has met HEP and MMT goals today. She has ongoing balance challenges with Tinetti. Her gait and transfers are better and occ cues to push up from the chair or to lock rollator before using it for transfers.
== END 2024-01-10 15:14 | disposition home or self-care (01) ==
LOC: PHYS 10:30
PROVIDERS: Family Provider Internal Medicine; PCP Internal Medicine; Referring Provider Internal Medicine; Visit Provider Internal Medicine
DX: M25.562 Pain in left knee (principal); M25.572 Pain in left ankle and joints of left foot
CPT/HCPCS: 97110; 97112; 97116; 97161; 97530; 97535

== ENCOUNTER → 2024-01-08 11:25 | Outpatient (CLI) | payer MEDICARE, SELFPAY ==
[2024-01-08 13:25] LABS: Alanine Aminotransferase 17 IU/L (<35); Albumin 4.1 g/dL (3.5-5.0); Albumin Globulin Ratio 1.6 (1.0-2.8); Alkaline Phosphatase 94 U/L (38-126); Aspartate Aminotransferase 19 IU/L (14-36); BUN Creatinine Ratio 27.2 (6-22); Bilirubin Total 0.7 mg/dL (0.2-1.3); Blood Urea Nitrogen 64 mg/dL (7-17); Calcium 8.4 mg/dL (8.4-10.2); Carbon Dioxide 24 mmol/L (22-32); Chloride 109 mmol/L (98-107); Estimated Glomerular Filt Rate 20 mL/min (>60); Globulin 2.6 g/dL (1.7-4.1); Glucose 106 mg/dL (80-110); HEMOLYSIS < 15 (0-50); Potassium 4.5 mmol/L (3.4-5.1); Sodium 142 mmol/L (137-145); Total Protein 6.7 g/dL (6.3-8.2)
[2024-01-08 13:30] LABS: Hemoglobin A1C% w Est Avg Glu 5.8 % (4.0-6.0)
== END ==
LOC: LAB 11:26
PROVIDERS: Family Provider Internal Medicine; PCP Internal Medicine; Referring Provider Internal Medicine; Visit Provider Internal Medicine
DX: I12.9 Hypertensive chronic kidney disease with stage 1 through stage 4 chronic kidney disease, or unspecified chronic kidney disease (principal); E11.9 Type 2 diabetes mellitus without complications; N18.31 Chronic kidney disease, stage 3a
CPT/HCPCS: 36415; 80053; 83036

== ENCOUNTER → 2024-02-12 08:37 | Outpatient (CLI) | payer MEDICARE, SELFPAY ==
[2024-02-12 10:34] LABS: BUN Creatinine Ratio 18.9 (6-22); Blood Urea Nitrogen 33 mg/dL (7-17); Calcium 9.2 mg/dL (8.4-10.2); Carbon Dioxide 29 mmol/L (22-32); Chloride 105 mmol/L (98-107); Estimated Glomerular Filt Rate 28 mL/min (>60); Glucose 94 mg/dL (80-110); HEMOLYSIS < 15 (0-50); Potassium 4.6 mmol/L (3.4-5.1); Sodium 139 mmol/L (137-145)
== END ==
PROVIDERS: Family Provider Internal Medicine; PCP Internal Medicine; Referring Provider Internal Medicine; Visit Provider Internal Medicine
DX: I12.9 Hypertensive chronic kidney disease with stage 1 through stage 4 chronic kidney disease, or unspecified chronic kidney disease (principal); N18.31 Chronic kidney disease, stage 3a
CPT/HCPCS: 36415; 80048

== ENCOUNTER 2024-03-12 06:13 | Day surgery (SDC) | payer MEDICARE, SELFPAY ==
[2024-03-04 15:16] VITALS: BMI 42.5
[2024-03-12] MEDS: ACETAMINOPHEN 325 MG TABLET 975 MG PO (06:57)
[2024-03-12] MEDS: LACTATED RINGERS 1,000 ML 42 ML IV (07:00)
[2024-03-12 07:05] VITALS: BMI 43.4
--- NOTE | 2024-03-12 07:15 | PM.PREOP ---
Pre-operative Note Interval Note History & Physical reviewed/Exam performed by Physician: Yes Changes to H&P: No
[2024-03-12 07:35] VITALS: BP 141/76; PULSE 95; RESP 19; TEMP 36.8; O2SAT 94
--- NOTE | 2024-03-12 07:39 | PM.OP.1 ---
Operative Date/Time/Diagnoses Date of procedure: 03/12/24 Time of procedure: 08:00 Pre-op diagnosis: Knee internal derangement, left, bucket-handle tear medial meniscus left knee Post-op diagnosis: same Procedure & Clinicians Procedure: Arthroscopic partial medial meniscectomy bucket-handle meniscus tear left knee CPT code 09391 Same procedure as scheduled: Yes Indications: 83-year-old female with exquisite left knee pain and bucket-handle meniscus tear with mechanical symptoms unable to move sideways or twist. Minimal to mild arthritis KL 2 on XR. Failed numerous conservative treatments including rest activity modifications and corticosteroid injection. Indicated for partial medial meniscectomy. She understands she does have some arthritis may have persistent pain or worsening arthritis. The risks and benefits of the procedure have been discussed with the patient and given the opportunity to ask questions. The risks of surgery include but are not limited to infection, malunion, nonunion, persistence of pain, damage to nerves and blood vessels, posttraumatic arthritis, DVT, PE, cardiopulmonary complications and . The patient expressed a thorough understanding of the risks and benefits of surgery and has elected to proceed. Consent was signed. Surgeon: Hailee Ivan Anesthesia Type: General and Local Operative Notes Findings: Suprapatellar pouch normal Patellofemoral compartment grade 3 change Lateral gutter normal Medial gutter normal Medial compartment-grade 3 change medial femoral condyle and tibial plateau. Focal area of grade 4 change of the lateral medial condyle of the femur. Degenerative meniscal tearing with displaced anterior flap debrided to stable base. No loose body Notch ACL intact. Partially visualized PCL. Lateral compartment grade 2 changes. Lateral meniscus intact. Closure Type: primary Specimen(s): none sent Prosthetic devices, grafts, tissues, transplants, or devices: none Estimated Blood Loss (mL): 10 Blood products transfused: none Tourniquet time (min): 32 Procedure in detail: Patient was seen in the preoperative area the site of surgery was marked as was the left knee. Informed consent was confirmed. The patient was brought back to the operating room by the anesthesia team positioned supine on operative table. Bony prominences were well padded. A well-padded thigh tourniquet was applied. The lateral post and foot bolster were applied. The left lower extremity was prepped and draped in the standard sterile fashion a formal time-out procedure was performed confirming the patient's side and site of surgery administration of appropriate preoperative antibiotic. All were in agreement. Attention turned to the left lower extremity Esmarch was used for exsanguination and the tourniquet raised to 250 mmHg on the thigh. The anterolateral portal was established in the standard fashion and the arthroscope inserted. Diagnostic arthroscopy was carried out in the usual fashion with the findings given above. Next under direct visualization the anteromedial portal was established. The scope and instruments were navigated into the medial compartment. Displaced anterior horn flap medial meniscus tear was identified and debrided using a combination of the shaver and biters back to a stable border. Minimal chondroplasty medial femoral condyle tibial plateau. Once this was completed arthroscopic instruments were removed. Portal sites were closed with 3-0 nylon suture. 0.25% Marcaine with epinephrine was injected for local anesthetic. A sterile dressing was placed with gauze Webril and an Josue wrap. The patient was woken from anesthesia and taken to the recovery room in good condition there were no immediate complications from this procedure. All counts were correct. Complications: none Post-operative Condition: stable Disposition: PACU Plan for aftercare: Weightbear as tolerated immediate range of motion. May remove dressing in 3 days and shower. Sutures remain in place for 2 weeks. Follow up in Orthopedic Clinic in 2 weeks. Restart Coumadin tonight.
[2024-03-12] MEDS: CEFAZOLIN 2 GM/100 ML PREMIX 100 ML IV (07:50)
--- NOTE | 2024-03-12 08:06 | SUR.OPER ---
Supine on padded OR bed, head on pillow, arms secured on padded arm boards at <90 degrees abduction, legs uncrossed, safety belt at thigh, tape over blanket over lower RIGHT LEG. LEFT LEG PREPPED AND HELD ON FIELD.
[2024-03-12] MEDS: BUPIVACAINE 0.25% (PF) 30 ML, EPINEPHrine 0.15 MG INJ (08:15)
[2024-03-12 08:46] VITALS: BP 141/83; PULSE 106; RESP 16; TEMP 37; O2SAT 93
[2024-03-12 08:50] VITALS: BP 149/85; PULSE 105; RESP 20; O2SAT 94
[2024-03-12 08:56] VITALS: BP 142/79; PULSE 95; RESP 22; O2SAT 95
[2024-03-12 09:00] VITALS: BP 142/91; PULSE 95; RESP 15; O2SAT 98
[2024-03-12 09:11] VITALS: BP 151/61; PULSE 100; RESP 21; TEMP 36.4; O2SAT 94
== END 2024-03-12 09:20 | disposition home or self-care (01) ==
PROVIDERS: Family Provider Internal Medicine; PCP Internal Medicine; Referring Provider Orthopaedic Surgery Foot and Ankle Surgery; Visit Provider Orthopaedic Surgery Foot and Ankle Surgery
PROC: (CPT 29870; principal; 2024-03-12 07:45)
DX: S83.212A Bucket-handle tear of medial meniscus, current injury, left knee, initial encounter (principal); M23.92 Unspecified internal derangement of left knee
CPT/HCPCS: 29881; J0171; J0330; J0690; J1100; J2405; J2704; J3010

== ENCOUNTER → 2024-06-26 11:37 | Outpatient (CLI) | payer MEDICARE, SELFPAY ==
[2024-06-26 13:01] LABS: Add Manual Diff / Slide Review NO; Basophils Absolute Auto 200 /uL (0-100); Basophils Percent Auto 1.8 % (0-2); Eosinophils Absolute Auto 100 /uL (0-450); Eosinophils Percent Auto 1.5 % (2-4); Hematocrit 38.6 % (36-46); Hemoglobin 12.8 g/dL (12.0-16.0); Lymphocytes Absolute Auto 1800 /uL (1100-4500); Lymphocytes Percent Auto 18.3 % (25-40); Mean Corpuscular HGB Conc 33.1 % (30-36); Mean Corpuscular Hemoglobin 28.2 PG (26-34); Mean Corpuscular Volume 85.1 fL (80-100); Monocytes Absolute Auto 900 /uL (0-900); Monocytes Percent Auto 9.2 % (3-14); Neutrophils Absolute Auto 6800 /uL (1500-7000); Neutrophils Percent Auto 69.2 % (50-75); Platelet Count 233 X10^3/uL (150-400); Red Blood Cell Count 4.53 X10^6/uL (4.0-5.2); White Blood Cell Count 9.8 X10^3/uL (4.5-11.0)
[2024-06-26 13:12] LABS: Appearance Urine UA CLEAR; Bilirubin Urine UA NEGATIVE (NEGATIVE); Color Urine UA YELLOW; Glucose Urine UA NEGATIVE (Negative); Ketones Urine UA NEGATIVE (NEGATIVE); Leukocyte Esterase Urine UA 1+ (NEGATIVE); Nitrite Urine UA NEGATIVE (Negative); Occult Blood Urine UA NEGATIVE (Negative); Protein Urine UA NEGATIVE (Negative); Specific Gravity Urine UA 1.015 (1.000-1.035); Urobilinogen Urine UA 0.2 E.U./dL (0.2)
[2024-06-26 13:13] LABS: pH Urine UA 6.5 (4.5-8.0)
[2024-06-26 13:20] LABS: Bacteria Urine Few (2-10); Culture Indicated Urine Specimen Cultured; RBC Urine 0-1/HPF (0-5/HPF); Squamous Epithelial Cell Urine 0-1 /HPF (0-5/HPF); Urine Volume 10mL (spun); WBC Urine 5-10/HPF (0-5/HPF)
[2024-06-26 13:26] LABS: INR 1.5 (0.9-1.3); Prothrombin Time 17.1 SECONDS (9.4-12.5)
[2024-06-26 13:51] LABS: HEMOLYSIS < 15 (0-50); Iron 64 ug/dL (37-170)
[2024-06-26 13:53] LABS: Hemoglobin A1C% w Est Avg Glu 6.1 % (4.0-6.0)
[2024-06-26 13:55] LABS: Albumin 4.6 g/dL (3.5-5.0); BUN Creatinine Ratio 22.8 (6-22); Blood Urea Nitrogen 46 mg/dL (7-17); Calcium 9.4 mg/dL (8.4-10.2); Carbon Dioxide 24 mmol/L (22-32); Chloride 108 mmol/L (98-107); Estimated Glomerular Filt Rate 24 mL/min (>60); Glucose 117 mg/dL (80-110); HEMOLYSIS < 15 (0-50); Phosphorous 3.1 mg/dL (2.8-4.1); Potassium 4.2 mmol/L (3.4-5.1); Sodium 141 mmol/L (137-145)
[2024-06-26 13:58] LABS: Alanine Aminotransferase 23 IU/L (<35); Alkaline Phosphatase 118 U/L (38-126); Aspartate Aminotransferase 26 IU/L (14-36); BUN Creatinine Ratio 24.6 (6-22); Bilirubin Total 0.9 mg/dL (0.2-1.3); Blood Urea Nitrogen 47 mg/dL (7-17); Calcium 9.4 mg/dL (8.4-10.2); Chloride 108 mmol/L (98-107); Cholesterol 208 mg/dL (140-199); Estimated Glomerular Filt Rate 25 mL/min (>60); Glucose 116 mg/dL (80-110); HDL Cholesterol 83 mg/dL (40-60); HEMOLYSIS < 15 (0-50); LDL Cholesterol Calculated 96 mg/dL (<100); Potassium 4.4 mmol/L (3.4-5.1); Sodium 142 mmol/L (137-145); Total Protein 7.7 g/dL (6.3-8.2); Triglycerides 147 mg/dL (35-150)
[2024-06-26 14:00] LABS: Albumin 4.6 g/dL (3.5-5.0); Albumin Globulin Ratio 1.5 (1.0-2.8); Carbon Dioxide 24 mmol/L (22-32); Globulin 3.1 g/dL (1.7-4.1)
[2024-06-26 14:02] LABS: Percent Iron Saturation 16 % (15-50); Total Iron Binding Capacity 394 ug/dL (265-497); Transferrin 320 mg/dL (206-381)
[2024-06-26 14:13] LABS: Free T4, Direct Thyroxine 0.91 ng/dL (0.78-2.19)
[2024-06-26 14:27] LABS: Thyroid Stimulating Hormone 1.16 uIU/mL (0.47-4.68)
[2024-06-26 14:36] LABS: Ferritin 45 ng/mL (11-264)
[2024-06-26 16:39] LABS: Creatinine Urine Random 77.11 mg/dL; Protein (Total) Urine Random 11 mg/dL (0-12); Protein Creatinine Ratio Urine 0.14 GRAM/24H
[2024-06-26 16:46] LABS: Microalbumin Urine Random 3.2 mg/dL (0-1.6)
[2024-06-26 16:58] LABS: Vitamin D 25 Hydroxy (D3) 15.7 ng/mL (30.0-100.0)
[2024-06-27 11:42] LABS: Parathyroid Hormone Int 106 pg/mL (15-65)
[2024-06-30 17:10] LABS: Cystatin C 2.03 mg/L (0.87-1.12)
== END ==
PROVIDERS: Family Provider Internal Medicine; PCP Internal Medicine; Referring Provider Internal Medicine Nephrology; Visit Provider Internal Medicine
DX: I12.9 Hypertensive chronic kidney disease with stage 1 through stage 4 chronic kidney disease, or unspecified chronic kidney disease (principal); N18.4 Chronic kidney disease, stage 4 (severe); E11.22 Type 2 diabetes mellitus with diabetic chronic kidney disease; E66.01 Morbid (severe) obesity due to excess calories; Z68.41 Body mass index [BMI] 40.0-44.9, adult; Z79.01 Long term (current) use of anticoagulants
CPT/HCPCS: 80053; 80061; 80069; 81001; 82043; 82306; 82570; 82610; 82728; 83036; 83540; 83550; 83970; 84156; 84439; 84443; 85025; 85610; 87077; 87086

== ENCOUNTER → 2024-12-24 09:48 | Outpatient (CLI) | payer MEDICARE, SELFPAY ==
[2024-12-24 10:52] LABS: Add Manual Diff / Slide Review NO; Basophils Absolute Auto 100 /uL (0-100); Eosinophils Absolute Auto 100 /uL (0-450); Eosinophils Percent Auto 0.8 % (2-4); Hematocrit 40.1 % (36-46); Hemoglobin 13.5 g/dL (12.0-16.0); Lymphocytes Absolute Auto 1500 /uL (1100-4500); Lymphocytes Percent Auto 12.4 % (25-40); Mean Corpuscular HGB Conc 33.6 % (30-36); Mean Corpuscular Hemoglobin 28.9 PG (26-34); Monocytes Absolute Auto 900 /uL (0-900); Monocytes Percent Auto 7.8 % (3-14); Neutrophils Absolute Auto 9200 /uL (1500-7000); Platelet Count 251 X10^3/uL (150-400); Red Blood Cell Count 4.66 X10^6/uL (4.0-5.2); Red Cell Distribution Width 14.7 % (11.6-14.8); White Blood Cell Count 11.8 X10^3/uL (4.5-11.0)
[2024-12-24 10:59] LABS: INR 1.8 (0.9-1.3); Prothrombin Time 20.1 SECONDS (9.4-12.5)
[2024-12-24 11:02] LABS: Hemoglobin A1C% w Est Avg Glu 5.7 % (4.0-6.0)
[2024-12-24 11:13] LABS: Alanine Aminotransferase 20 IU/L (<35); Albumin 4.7 g/dL (3.5-5.0); Albumin Globulin Ratio 1.6 (1.0-2.8); Alkaline Phosphatase 94 U/L (38-126); Aspartate Aminotransferase 20 IU/L (14-36); BUN Creatinine Ratio 26.1 (6-22); Blood Urea Nitrogen 58 mg/dL (7-17); Calcium 9.3 mg/dL (8.4-10.2); Carbon Dioxide 25 mmol/L (22-32); Chloride 102 mmol/L (98-107); Cholesterol 206 mg/dL (140-199); Estimated Glomerular Filt Rate 21 mL/min (>60); Globulin 2.9 g/dL (1.7-4.1); Glucose 120 mg/dL (70-99); HDL Cholesterol 72 mg/dL (40-60); HEMOLYSIS < 15 (0-50); LDL Cholesterol Calculated 108 mg/dL (<100); Potassium 4.2 mmol/L (3.4-5.1); Sodium 139 mmol/L (137-145); Total Protein 7.6 g/dL (6.3-8.2); Triglycerides 130 mg/dL (35-150)
== END ==
PROVIDERS: Family Provider Internal Medicine; PCP Internal Medicine; Referring Provider Internal Medicine; Visit Provider Internal Medicine
DX: E11.9 Type 2 diabetes mellitus without complications (principal); N18.4 Chronic kidney disease, stage 4 (severe); I48.0 Paroxysmal atrial fibrillation; Z79.01 Long term (current) use of anticoagulants; I12.9 Hypertensive chronic kidney disease with stage 1 through stage 4 chronic kidney disease, or unspecified chronic kidney disease
CPT/HCPCS: 36415; 80053; 80061; 83036; 85025; 85610

== ENCOUNTER → 2025-05-14 12:09 | Outpatient (CLI) | payer MEDICARE, SELFPAY ==
--- NOTE | 2025-05-14 12:11 | DI.RAD.S_ITS ---
PROCEDURE: XR CHEST 2V INDICATIONS: SOB TECHNIQUE: 2 views of the chest were acquired. COMPARISON: [facility], CR, XR CHEST 1V, 02/26/2018, 10:45. FINDINGS: Heart, mediastinum and pulmonary vascular: Heart is moderately enlarged but unchanged. Mediastinum is unremarkable. Pulmonary vascular is minimally distended Lungs: Clear. No edema Pleural spaces: Normal-no effusions or pneumothorax. Bones and soft tissues: Moderate old compression fractures upper midthoracic spine. IMPRESSION: Mild CHF or volume overload Dictated by: Alexx Baxter M.D. on 05/15/2025 at 11:22 Approved by: Alexx Baxter M.D. on 05/15/2025 at 11:23
== END ==
PROVIDERS: Family Provider Internal Medicine; PCP Internal Medicine; Referring Provider Internal Medicine; Visit Provider Internal Medicine
DX: R06.02 Shortness of breath (principal)
CPT/HCPCS: 71046

== ENCOUNTER → 2025-06-17 09:45 | Outpatient (CLI) | payer MEDICARE, SELFPAY | PROVIDERS: Family Provider Internal Medicine; PCP Internal Medicine; Referring Provider Internal Medicine; Visit Provider Internal Medicine | DX: R06.02 Shortness of breath (principal); R94.2 Abnormal results of pulmonary function studies | CPT/HCPCS: 94060; 94726; 94729 ==

== ENCOUNTER → 2025-06-30 15:13 | Outpatient (CLI) | payer MEDICARE, SELFPAY ==
[2025-06-30 16:36] LABS: Hemoglobin A1C% w Est Avg Glu 6.0 % (4.0-6.0)
[2025-06-30 16:42] LABS: Alanine Aminotransferase 16 IU/L (<35); Albumin 4.6 g/dL (3.5-5.0); Albumin Globulin Ratio 1.7 (1.0-2.8); Alkaline Phosphatase 91 U/L (38-126); Blood Urea Nitrogen 81 mg/dL (7-17); Calcium 9.5 mg/dL (8.4-10.2); Carbon Dioxide 18 mmol/L (22-32); Chloride 112 mmol/L (98-107); Estimated Glomerular Filt Rate 14 mL/min (>60); Globulin 2.7 g/dL (1.7-4.1); Glucose 111 mg/dL (70-99); HEMOLYSIS < 15 (0-50); Potassium 4.7 mmol/L (3.4-5.1); Sodium 144 mmol/L (137-145); Total Protein 7.3 g/dL (6.3-8.2)
[2025-06-30 16:53] LABS: NT-proBNP (BNP-Adult 18+) 2660 pg/mL (<450)
[2025-06-30 17:08] LABS: Vitamin D 25 Hydroxy (D3) 51.3 ng/mL (30.0-100.0)
== END ==
PROVIDERS: PCP Internal Medicine; Referring Provider Internal Medicine; Visit Provider Internal Medicine
DX: I50.9 Heart failure, unspecified (principal); E11.9 Type 2 diabetes mellitus without complications; N18.4 Chronic kidney disease, stage 4 (severe); I10 Essential (primary) hypertension; E55.9 Vitamin D deficiency, unspecified
CPT/HCPCS: 36415; 80053; 82306; 83036; 83880

== ENCOUNTER → 2025-07-06 14:51 | Outpatient (CLI) | payer MEDICARE, SELFPAY ==
--- NOTE | 2025-07-06 14:53 | DI.ECHO.S_ITS ---
[facility]---------+ [facility] : : [address] : : [place] : : [id number] : : Phone: [phone] Echocardiogram Report + + :Name: MARILIN CAVAZOS Study Date: 07/06/2025 Height: 60 in : :Hospital ReadingLocation: Weight: 215 lb: : Gender: Female BSA: 1.9 m2 : :: 1940 Age: 85 yrs : :Reason For Study: CONGESTIVE HEART FAILURE : :Ordering Physician: OFE, : :MELISSA Cole Performed By: Ray Coronel : :Referring: MELISSA THAKUR : + + Interpretation Summary This is a technically difficult study characterized by limited endocardial visualization and enhanced with Definity echocontrast. Afib with controlled rate. The left ventricle is normal in size, mildly increased wall thickness, and normal systolic function without any focal wall motion abnormalities. The ejection fraction is estimated to be 55-60%. LVEF has not changed. LV diastolic function cannot be asessed due to a-fib. The right ventricle is borderline dilated with normal RV systolic function. Mild biatrial enlargement. No significant valve abnormalities. The right ventricular systolic pressure is estimated at 58 mmHg assuming right atrial pressure of 8 mm Hg. Compared to prior echo 03/12/2018 PA systolic pressure is up from 43 to 58 mm Hg. Procedure: A two-dimensional transthoracic echocardiogram with color flow and Doppler was performed. The study quality was technically difficult. Comparison is made with the echocardiogram of 03/12/2018. The patient was in atrial fibrillation with heart rates between 71-103 bpm during the exam. Left Ventricle: The left ventricle is normal in size. Left ventricular wall thickness is mildly increased. There is no ventricular septal defect visualized. The ejection fraction is estimated to be 55-60%. There are no focal wall motion abnormalities. Diastolic function could not be accurately assessed due to atrial fibrillation. Right Ventricle: The right ventricle is normal in size and function. Atria: There is mild biatrial enlargement. There is no Doppler evidence for an interatrial shunt. Mitral Valve: There is mild mitral annular calcification. The mitral valve leaflets appear mildly thickened. There is mild to moderate mitral regurgitation. Aortic Valve: The aortic valve is trileaflet. The aortic valve is mildly calcified. No aortic regurgitation is present. Tricuspid Valve: The tricuspid valve is not well visualized, but is grossly normal. There is mild to moderate tricuspid regurgitation. Pulmonic Valve: The pulmonic valve is not well visualized. There is no pulmonic valvular regurgitation. Great Vessels: The aortic root is normal size. The dimensions of the ascending aorta are normal. The pulmonary is not well visualized. The IVC is dilated (diameter is greater than 2.1 cm) yet it collapses greater than 50% with a sniff. This suggests a right atrial pressure of 8 mm Hg. Pericardium/ Pleura There is no pericardial effusion. There is no pleural effusion. MMode/2D Measurements & Calculations LVIDd: 4.1 cm LVOT diam: 1.7 cm LVIDs: 3.0 cm Ao root diam: 3.3 cm FS: 27.1 % asc Aorta Diam: 3.5 cm EPSS: 0.75 cm IVSd: 1.2 cm LVPWd: 1.2 cm LV mir. diameter/BSA (cm/m^2): 2.1 LV sys. diameter/BSA (cm/m^2): 1.5 LA A2 area: 19.9 cm2 RA long axis: 6.1 cm LA A4 area: 22.0 cm2 RA area: 25.1 cm2 LA length (vol): 6.3 cm RA vol: 87.4 ml LA vol: 58.9 ml RA : 45.4 ml/m2 LA vol index: 30.6 ml/m2 IVC diam: 1.8 cm RVD1 (basal): 3.8 cm RVD2 (mid): 3.2 cm TAPSE: 2.3 cm Doppler Measurements & Calculations Ao V2 max: 138.6 cm/sec LVOT Max Edgar: 68.4 cm/sec Ao V2 mean: 94.5 cm/sec LV V1 max P.9 mmHg Ao max P.7 mmHg LV V1 VTI: 11.6 cm Ao mean P.9 mmHg JEFFREY(I,D): 0.94 cm2 Ao V2 VTI: 29.9 cm JEFFREY(V,D): 1.2 cm2 sev ratio: 0.39 JEFFREY indexed to BSA (cm^2/m^2): 0.49 MV E max edgar: 91.1 cm/sec TR max edgar: 352.3 cm/sec MV A max edgar: 24.2 cm/sec TR max P.7 mmHg MV E/A: 3.8 PA V2 max: 116.2 cm/sec Med Peak E' Edgar: 5.3 cm/sec PA V2 mean: 85.9 cm/sec E/E' med: 17.1 PA mean P.2 mmHg Lat Peak E' Edgar: 7.2 cm/sec PA pr(Accel): 49.9 mmHg E/E' lat: 12.6 E/e' average: 14.9 MV dec time: 0.22 sec SV(OT): 28.0 ml Electronically signed by: Myra Chu M.D. on Reading Physician:07/06/2025 11:21 PM
== END ==
LOC: ECHO 14:53
PROVIDERS: PCP Internal Medicine; Referring Provider Internal Medicine; Visit Provider Internal Medicine
DX: I08.1 Rheumatic disorders of both mitral and tricuspid valves (principal); I48.91 Unspecified atrial fibrillation; I50.9 Heart failure, unspecified
CPT/HCPCS: C8929; Q9957